=== PATIENT | female | born 1945 | race Caucasian/White ===

== ENCOUNTER 2017-05-28 16:58 | Emergency (ER) | payer MEDICARE, OTHER ==
[2017-05-28 17:13] VITALS: RESP 18
--- NOTE | 2017-05-28 17:18 | ED ---
General Adult HPI - General Chief complaint: Shortness of Breath Stated complaint: SOB Time Seen by Provider: 05/28/17 17:00 Source: patient, RN notes reviewed Mode of arrival: EMS Limitations: no limitations - History of Present Illness Initial comments: This is a 71-year-old female presents emergency Department stating she has had a heart attack in the past. Patient comes in today complaining of a four-day history of shortness of breath. Patient states the shortness of breath that seems to be getting slightly worse over the 4 days. Patient denies any chest pain or palpitations. Patient denies any calf pain or leg swelling. Patient denies any recent fever chills or cough. Patient denies any pain whatsoever. Patient states she just noticed that she's more short of breath especially when she is exerting herself. Patient denies any lightheadedness dizziness or near syncopal episode. Patient denies abdominal pain patient denies nausea vomiting or diarrhea. - Related Data Home Medications Medication Instructions Recorded Confirmed ALPRAZolam [Xanax] 0.25 mg PO TID PRN 10/20/13 05/28/17 Aspirin 81 mg PO DAILY 10/20/13 05/28/17 Insulin Aspart [NovoLOG Flexpen] 14 unit SQ TID 10/20/13 05/28/17 Insulin Glargine,Hum.rec.anlog 40 unit SQ HS 10/20/13 05/28/17 [Lantus Solostar] Metoprolol Tartrate [Metoprolol 50 mg PO BID 10/20/13 05/28/17 Tartrate] Multivitamin/Iron/Folic Acid 1 tab PO DAILY 10/20/13 05/28/17 [Centrum Complete Multivit Tab] Pramipexole [Mirapex] 0.125 mg PO HS 10/20/13 05/28/17 Pravastatin Sodium [Pravachol] 80 mg PO HS 10/20/13 05/28/17 Sertraline HCl [Zoloft] 100 mg PO DAILY 10/20/13 05/28/17 Spironolactone [Spironolactone] 25 mg PO DAILY 10/20/13 05/28/17 Amitriptyline HCl [Elavil] 50 mg PO HS 05/28/17 05/28/17 Furosemide [Lasix] 40 mg PO DAILY 05/28/17 05/28/17 Lisinopril 40 mg PO DAILY 05/28/17 05/28/17 Omeprazole [PriLOSEC] 20 mg PO AC-BID 05/28/17 05/28/17 Triamterene-Hctz 37.5-25Mg 1 cap PO DAILY 05/28/17 05/28/17 [Dyazide 37.5-25 Capsule] amLODIPine [Norvasc] 10 mg PO DAILY 05/28/17 05/28/17 cloNIDine HCL [Catapres] 0.1 mg PO HS 05/28/17 05/28/17 metFORMIN HCL 1,000 mg PO BID 05/28/17 05/28/17 Allergies Allergy/AdvReac Type Severity Reaction Status Date / Time No Known Allergies Allergy Verified 05/28/17 17:32 Review of Systems ROS Statement: Those systems with pertinent positive or pertinent negative responses have been documented in the HPI. ROS Other: All systems not noted in ROS Statement are negative. Past Medical History Past Medical History: Coronary Artery Disease (CAD), Heart Failure, Diabetes Mellitus, Eye Disorder, GERD/Reflux, Hyperlipidemia, Hypertension, Myocardial Infarction (DC), Osteoarthritis (OA) Additional Past Medical History / Comment(s): L cataract, hx of kidney stones Last Myocardial Infarction Date:: 05/2012 History of Any Multi-Drug Resistant Organisms: None Reported Past Surgical History: Heart Catheterization, Hysterectomy Additional Past Surgical History / Comment(s): Colonoscopy Past Anesthesia/Blood Transfusion Reactions: No Reported Reaction Past Psychological History: Anxiety, Depression Smoking Status: Former smoker Past Alcohol Use History: None Reported Past Drug Use History: Unable to Obtain - Past Family History Brother(s) Family Medical History: Cancer, Diabetes Mellitus Mother Family Medical History: Cancer Additional Family Medical History / Comment(s): Leukemia General Exam - General Exam Comments Initial Comments: GENERAL: Patient is well-developed and well-nourished. Patient is nontoxic and well- hydrated and is in mild distress. ENT: Neck is soft and supple. No significant lymphadenopathy is noted. Oropharynx is clear. Moist mucous membranes. Neck has full range of motion without eliciting any pain. EYES: The sclera were anicteric and conjunctiva were pink and moist. Extraocular movements were intact and pupils were equal round and reactive to light. Eyelids were unremarkable. PULMONARY: Unlabored respirations. Good breath sounds bilaterally. No audible rales rhonchi or wheezing was noted. CARDIOVASCULAR: There is a regular rate and rhythm without any murmurs gallops or rubs. ABDOMEN: Soft and nontender with normal bowel sounds. No palpable organomegaly was noted. There is no palpable pulsatile mass. SKIN: Skin is clear with no lesions or rashes and otherwise unremarkable. NEUROLOGIC: Patient is alert and oriented x3. Cranial nerves II through XII are grossly intact. Motor and sensory are also intact. Normal speech, volume and content. Symmetrical smile. MUSCULOSKELETAL: Normal extremities with adequate strength and full range of motion. No lower extremity swelling or edema. No calf tenderness. LYMPHATICS: No significant lymphadenopathy is noted PSYCHIATRIC: Normal psychiatric evaluation. Normal interpersonal interactions appears functionally intact in deals appropriately with others. No signs of depression. No signs of anxiety. Limitations: no limitations Course Vital Signs 05/28/17 05/28/17 17:05 19:25 Temperature 97.6 F Pulse Rate 93 93 Respiratory 18 18 Rate Blood Pressure 151/66 174/72 O2 Sat by Pulse 97 98 Oximetry Medical Decision Making - Medical Decision Making EKG shows normal sinus rhythm at 87 bpm ND interval 290 QRS is 90 QT interval 358 QTC is 4:30. Patient's EKG shows no ST segment elevation however there is some slight ST segment depression in leads V5 and V6. Chest x-ray showed no acute abnormality. Computed tomography scan showed no acute abnormality. Patient and later on the emergency department was in no respiratory distress and was oxygenating 98% after she was done. I went back in to give her all of her results she was lying in bed chewing gum breathing through her nose and without oxygen was at 97-98% pulse ox. Patient felt comfortable going home as did the family. - Lab Data Result diagrams: 05/28/17 18:02 05/28/17 18:02 Lab Results 05/28/17 05/28/17 05/28/17 Range/Units 18:02 18: 18:02 WBC 8.6 (3.8-10.6) k/uL RBC 4.51 (3.80-5.40) m/uL Hgb 12.9 (11.4-16.0) gm/dL Hct 40.7 (34.0-46.0) % MCV 90.3 (80.0-100.0) fL MCH 28.7 (25.0-35.0) pg MCHC 31.8 (31.0-37.0) g/dL RDW 13.3 (11.5-15.5) % Plt Count 296 (150-450) k/uL Neutrophils % 60 % Lymphocytes % 31 % Monocytes % 6 % Eosinophils % 2 % Basophils % 0 % Neutrophils # 5.2 (1.3-7.7) k/uL Lymphocytes # 2.7 (1.0-4.8) k/uL Monocytes # 0.5 (0-1.0) k/uL Eosinophils # 0.1 (0-0.7) k/uL Basophils # 0.0 (0-0.2) k/uL PT (9.0-12.0) sec INR (<1.2) APTT (22.0-30.0) sec D-Dimer (<0.60) mg/L FEU Sodium 141 (137-145) mmol/L Potassium 4.3 (3.5-5.1) mmol/L Chloride 102 (98-107) mmol/L Carbon Dioxide 25 (22-30) mmol/L Anion Gap 14 mmol/L BUN 26 H (7-17) mg/dL Creatinine 0.76 (0.52-1.04) mg/dL Est GFR (MDRD) Af Amer >60 (>60 ml/min/1.73 sqM) Est GFR (MDRD) Non-Af >60 (>60 ml/min/1.73 sqM) Glucose 201 H (74-99) mg/dL Calcium 9.3 (8.4-10.2) mg/dL Magnesium 2.0 (1.6-2.3) mg/dL Total Bilirubin 0.4 (0.2-1.3) mg/dL AST 21 (14-36) U/L ALT 14 (9-52) U/L Alkaline Phosphatase 94 (38-126) U/L Total Creatine Kinase 28 L (30-135) U/L CK-MB (CK-2) 0.2 (0.0-2.4) ng/mL CK-MB (CK-2) Rel Index 0.7 Troponin I <0.012 (0.000-0.034) ng/mL NT-Pro-B Natriuret Pep pg/mL Total Protein 6.8 (6.3-8.2) g/dL Albumin 4.1 (3.5-5.0) g/dL 05/28/17 05/28/17 Range/Units 18:02 18:02 WBC (3.8-10.6) k/uL RBC (3.80-5.40) m/uL Hgb (11.4-16.0) gm/dL Hct (34.0-46.0) % MCV (80.0-100.0) fL MCH (25.0-35.0) pg MCHC (31.0-37.0) g/dL RDW (11.5-15.5) % Plt Count (150-450) k/uL Neutrophils % % Lymphocytes % % Monocytes % % Eosinophils % % Basophils % % Neutrophils # (1.3-7.7) k/uL Lymphocytes # (1.0-4.8) k/uL Monocytes # (0-1.0) k/uL Eosinophils # (0-0.7) k/uL Basophils # (0-0.2) k/uL PT 9.8 (9.0-12.0) sec INR 1.0 (<1.2) APTT 24.5 (22.0-30.0) sec D-Dimer 0.68 H (<0.60) mg/L FEU Sodium (137-145) mmol/L Potassium (3.5-5.1) mmol/L Chloride (98-107) mmol/L Carbon Dioxide (22-30) mmol/L Anion Gap mmol/L BUN (7-17) mg/dL Creatinine (0.52-1.04) mg/dL Est GFR (MDRD) Af Amer (>60 ml/min/1.73 sqM) Est GFR (MDRD) Non-Af (>60 ml/min/1.73 sqM) Glucose (74-99) mg/dL Calcium (8.4-10.2) mg/dL Magnesium (1.6-2.3) mg/dL Total Bilirubin (0.2-1.3) mg/dL AST (14-36) U/L ALT (9-52) U/L Alkaline Phosphatase (38-126) U/L Total Creatine Kinase (30-135) U/L CK-MB (CK-2) (0.0-2.4) ng/mL CK-MB (CK-2) Rel Index Troponin I (0.000-0.034) ng/mL NT-Pro-B Natriuret Pep 53 pg/mL Total Protein (6.3-8.2) g/dL Albumin (3.5-5.0) g/dL Disposition Clinical Impression: Dyspnea Disposition: HOME SELF-CARE Condition: Good Instructions: Dyspnea (ED) Referrals: Jorge Edmonds Jr, [Primary Care Provider] - 1-2 days Time of Disposition: 20:08
[2017-05-28 18:14] LABS: Basophils % (A) 0 %; Eosinophils # (A) 0.1 k/uL (0-0.7); Eosinophils % (A) 2 %; HCT 40.7 % (34.0-46.0); HGB 12.9 gm/dL (11.4-16.0); Lymphocytes # (A) 2.7 k/uL (1.0-4.8); Lymphocytes % (A) 31 %; MCH 28.7 pg (25.0-35.0); MCHC 31.8 g/dL (31.0-37.0); MCV 90.3 fL (80.0-100.0); Mean Platelet Volume 6.9; Monocytes # (A) 0.5 k/uL (0-1.0); Monocytes % (A) 6 %; Neutrophils # (A) 5.2 k/uL (1.3-7.7); Neutrophils % (A) 60 %; Platelet Count 296 k/uL (150-450); RBC 4.51 m/uL (3.80-5.40); RDW 13.3 % (11.5-15.5); WBC 8.6 k/uL (3.8-10.6)
[2017-05-28 18:24] LABS: ALT 14 U/L (9-52); AST 21 U/L (14-36); Albumin 4.1 g/dL (3.5-5.0); Alkaline Phosphatase 94 U/L (38-126); Anion Gap 14 mmol/L; Blood Urea Nitrogen 26 mg/dL (7-17); Calcium 9.3 mg/dL (8.4-10.2); Carbon Dioxide 25 mmol/L (22-30); Chloride 102 mmol/L (98-107); Glucose 201 mg/dL (74-99); Potassium 4.3 mmol/L (3.5-5.1); Sodium 141 mmol/L (137-145); Total Bilirubin 0.4 mg/dL (0.2-1.3); Total Protein 6.8 g/dL (6.3-8.2)
[2017-05-28 18:25] LABS: D-Dimer 0.68 mg/L FEU (<0.60)
--- NOTE | 2017-05-28 18:26 | XR ---
EXAMINATION TYPE: XR chest 2V DATE OF EXAM: 05/28/2017 COMPARISON: 03/06/2014 HISTORY: Short of breath TECHNIQUE: Frontal and lateral views of the chest are obtained. FINDINGS: Heart is normal. Lungs are clear of infiltrate. Thoracic aorta is atheromatous. There is n o pleural effusion. Bony thorax is intact. Mediastinum is normal. IMPRESSION: No active cardiopulmonary disease. No change. Normal heart.
[2017-05-28 18:29] LABS: Partial Thromboplastin Time 24.5 sec (22.0-30.0); Prothrombin Time 9.8 sec (9.0-12.0)
[2017-05-28 18:30] LABS: Creatine Kinase 28 U/L (30-135)
[2017-05-28 18:44] LABS: Creatine Kinase MB 0.2 ng/mL (0.0-2.4); Troponin I <0.012 ng/mL (0.000-0.034)
[2017-05-28] MEDS ORDERED: RX INFO: IV CONTRAST WAS GIVEN 1 EACH MISC MISCELLANE PRN (18:44)
--- NOTE | 2017-05-28 19:14 | CT ---
EXAMINATION TYPE: CT chest angio for PE DATE OF EXAM: 05/28/2017 COMPARISON: 11/01/2012 HISTORY: Increasing SOB. CT DLP: 631 mGycm Automated exposure control for dose reduction was used. CONTRAST: CT Chest for pulmonary embolism performed with without and with IV Contrast, patient injected with 73 mL of Omnipaque 350. FINDINGS: There are 3-D post processed images. The lungs are clear of consolidation. There is no evidence of a pulmonary mass. There is no pleural effusion. There is no pericardial effusion. Ascending aorta measu res 3.4 cm. There is no sign of dissection. I see no filling defects in the pulmonary arteries. There are a few bilateral bronchial lymph nodes measure up to 1 cm. There is no mediastinal adenopathy. IMPRESSION: No evidence of pulmonary embolism. There is clearing of the extensive pulmonary edema compared to old exam. There is clearing of right pleural effusion. Minimal bronchial nonspecific adenopathy. Atherom atous aorta.
[2017-05-28] MEDS ORDERED: cloNIDine HCL 0.1 MG TAB PO STA (20:33)
[2017-05-28] MEDS ORDERED: METOPROLOL TARTRATE 50 MG TAB PO STA (20:35)
[2017-05-28 21:02] VITALS: BP 182/77; PULSE 88; TEMP 97.8
== END 2017-05-28 21:05 | disposition home or self-care (01) ==
LOC: EC 16:58
DX: R06.00 Dyspnea, unspecified (principal); I25.10 Atherosclerotic heart disease of native coronary artery without angina pectoris; I11.0 Hypertensive heart disease with heart failure; I50.9 Heart failure, unspecified; E11.9 Type 2 diabetes mellitus without complications; E78.5 Hyperlipidemia, unspecified; I25.2 Old myocardial infarction; M19.90 Unspecified osteoarthritis, unspecified site; F32.9 Major depressive disorder, single episode, unspecified; F41.9 Anxiety disorder, unspecified; Z87.891 Personal history of nicotine dependence; Z79.82 Long term (current) use of aspirin; Z79.4 Long term (current) use of insulin; Z79.84 Long term (current) use of oral hypoglycemic drugs; Z79.899 Other long term (current) drug therapy
CPT/HCPCS: 36415; 93005; 85379; 83880; 80053; 82550; 82553; 83735; 84484; 85025; 85610; 85730; 71046; 71275; 99285; Q9967

== ENCOUNTER 2017-06-08 14:25 | Inpatient (IN) | payer MEDICARE, OTHER ==
[2017-06-08] MEDS ORDERED: SODIUM CHLORIDE 0.9% 1,000 ML IV STA (14:45)
[2017-06-08] MEDS ORDERED: ATROPINE SULFATE 0.1 MG/ML 10ML SYRINGE IV STA ×3 (14:48→15:07)
[2017-06-08] MEDS ORDERED: SODIUM CHLORIDE 0.9% 500 ML IV ONE (14:48)
--- NOTE | 2017-06-08 14:55 | ED ---
Dizziness HPI - General Chief Complaint: Dizziness Stated Complaint: bradycardia Time Seen by Provider: 06/08/17 14:30 Source: patient, EMS Mode of arrival: EMS Limitations: no limitations - History of Present Illness Initial Comments: 71 years old lady with history of heart disease history of angina diabetes hypertension was seen by hand wrapper operator today they felt that they noticed that she had extremely slow or slow heart rate when she was sent to ER she has been quite lightheaded lately and as a matter of fact cardiology had changed some of her medications on beta blockers were discontinued today. She complains about extreme lightheadedness and weakness no chest pain as such no headaches no neck stiffness she has help she has shortness of breath today she sustained is a chronic. No symptoms of TIA or CVA at this point. She has a very low blood pressure Dr. Carmen's office blood pressure was 70 systolic, when she arrived to the ER blood pressure was 150 systolic heart rate was still very low and she had a multiple PVCs as well - Related Data Home Medications Medication Instructions Recorded Confirmed ALPRAZolam [Xanax] 0.25 mg PO TID PRN 10/20/13 06/08/17 Aspirin 81 mg PO DAILY 10/20/13 06/08/17 Insulin Aspart [NovoLOG Flexpen] 14 unit SQ AC-TID 10/20/13 06/08/17 Insulin Glargine,Hum.rec.anlog 40 unit SQ HS 10/20/13 06/08/17 [Lantus Solostar] Multivitamin/Iron/Folic Acid 1 tab PO DAILY 10/20/13 06/08/17 [Centrum Complete Multivit Tab] Pramipexole [Mirapex] 0.125 mg PO HS 10/20/13 06/08/17 Omeprazole [PriLOSEC] 20 mg PO AC-BID 05/28/17 06/08/17 Triamterene-Hctz 37.5-25Mg 1 cap PO DAILY 05/28/17 06/08/17 [Dyazide 37.5-25 Capsule] metFORMIN HCL 1,000 mg PO BID 05/28/17 06/08/17 Lisinopril 20 mg PO DAILY 06/08/17 06/08/17 Metoprolol Tartrate [Lopressor] 25 mg PO BID 06/08/17 06/08/17 Naproxen Sodium [Aleve] 220 mg PO BID 06/08/17 06/08/17 Pravastatin Sodium [Pravachol] 80 mg PO DAILY 06/08/17 06/08/17 Allergies Allergy/AdvReac Type Severity Reaction Status Date / Time No Known Allergies Allergy Verified 06/08/17 15:11 Review of Systems ROS Statement: Those systems with pertinent positive or pertinent negative responses have been documented in the HPI. ROS Other: All systems not noted in ROS Statement are negative. Past Medical History Past Medical History: Coronary Artery Disease (CAD), Heart Failure, Diabetes Mellitus, Eye Disorder, GERD/Reflux, Hyperlipidemia, Hypertension, Myocardial Infarction (AR), Osteoarthritis (OA) Additional Past Medical History / Comment(s): L cataract, hx of kidney stones Last Myocardial Infarction Date:: 05/2012 History of Any Multi-Drug Resistant Organisms: None Reported Past Surgical History: Heart Catheterization, Hysterectomy Additional Past Surgical History / Comment(s): Colonoscopy Past Anesthesia/Blood Transfusion Reactions: No Reported Reaction Past Psychological History: Anxiety, Depression Smoking Status: Former smoker Past Alcohol Use History: None Reported Past Drug Use History: Unable to Obtain - Past Family History Brother(s) Family Medical History: Cancer, Diabetes Mellitus Mother Family Medical History: Cancer Additional Family Medical History / Comment(s): Leukemia General Exam - General Exam Comments Initial Comments: General: The patient is awake and alert, in no distress, and does not appear acutely ill. She looks tired and pale Skin: Skin is warm and dry and no rashes or lesions are noted. Eye: Pupils are equal, round and reactive to light, extra-ocular movements are intact; there is normal conjunctiva bilaterally. Ears, nose, mouth and throat: There are moist mucous membranes and no oral lesions. Neck: The neck is supple, there is no tenderness or JVD. Cardiovascular: There is a regular rate and rhythm. No murmur, rub or gallop is appreciated. Respiratory: To auscultation bilateral, no wheezing no rhonchi no distress respiratory urias noticed Gastrointestinal: Soft, non-distended, non-tender abdomen without masses or organomegaly noted. There is no rebound or guarding present. Bowel sounds are unremarkable. Back: There is no tenderness to palpation in the midline. There is no obvious deformity. Musculoskeletal: Normal ROM, no tenderness, There is no pedal edema. There is no calf tenderness or swelling. No cords were appreciated. Neurological: CN II-XII intact, Cranial nerves III through XII are intact. There are no obvious motor or sensory deficits. Coordination appears grossly intact. Speech is normal. Psychiatric: Cooperative, appropriate mood & affect, normal judgment. Limitations: no limitations Course Vital Signs 06/08/17 06/08/17 14:30 15:16 Temperature 96.5 F L Pulse Rate 42 L 48 L Respiratory 16 20 Rate Blood Pressure 153/63 138/64 O2 Sat by Pulse 100 100 Oximetry EKG Findings - EKG Comments: EKG Findings:: EKG is marked sinus bradycardia with occasional premature ventricular complexes ventricular rate is 54 MI interval is 198 QRS duration is 116 QT/QTc is 420/398. Previous EKG reveals some T-wave inversion in lead [address] elevation noticed noticed some PVCs, this was compared with the old EKG from 05/28/2017, there is normal sinus rhythm this is a marked bradycardia compared to an old EKG Medical Decision Making - Lab Data Result diagrams: 06/08/17 14:50 06/08/17 15:15 Lab Results 06/08/17 06/08/17 06/08/17 Range/Units 14:50 14:50 15:15 WBC 12.6 H (3.8-10.6) k/uL RBC 4.91 (3.80-5.40) m/uL Hgb 14.0 (11.4-16.0) gm/dL Hct 43.4 (34.0-46.0) % MCV 88.3 (80.0-100.0) fL MCH 28.4 (25.0-35.0) pg MCHC 32.2 (31.0-37.0) g/dL RDW 13.2 (11.5-15.5) % Plt Count 337 (150-450) k/uL Neutrophils % 66 % Lymphocytes % 27 % Monocytes % 4 % Eosinophils % 1 % Basophils % 0 % Neutrophils # 8.4 H (1.3-7.7) k/uL Lymphocytes # 3.4 (1.0-4.8) k/uL Monocytes # 0.5 (0-1.0) k/uL Eosinophils # 0.1 (0-0.7) k/uL Basophils # 0.0 (0-0.2) k/uL Sodium 135 L (137-145) mmol/L Potassium 8.1 H* (3.5-5.1) mmol/L Chloride 104 (98-107) mmol/L Carbon Dioxide 18 L (22-30) mmol/L Anion Gap 13 mmol/L BUN 74 H (7-17) mg/dL Creatinine 1.91 H (0.52-1.04) mg/dL Est GFR (MDRD) Af Amer 31 (>60 ml/min/1.73 sqM) Est GFR (MDRD) Non-Af 26 (>60 ml/min/1.73 sqM) Glucose 135 H (74-99) mg/dL Calcium 9.3 (8.4-10.2) mg/dL Total Bilirubin 0.4 (0.2-1.3) mg/dL AST 19 (14-36) U/L ALT 23 (9-52) U/L Alkaline Phosphatase 68 (38-126) U/L Troponin I <0.012 (0.000-0.034) ng/mL Total Protein 7.3 (6.3-8.2) g/dL Albumin 4.4 (3.5-5.0) g/dL Critical Care Time Total Critical Care Time: 60 Critical Care Time: Sent over by a Dr. Canales considering her very low blood pressure she had a blood pressure systolic 70 physician's office and heart rate was in 40s on arrival heart rate was still 40s and blood pressure has gotten better she does have a history of heart vomit neuropathy she feels very weak she was started on him IV fluids we did the atropine 0.5 mg IV every 10 minutes with a great deal of benefit, we had stopped her beta blockers, EKG read significant bradycardia I was not a third-degree block and there was just a sinus bradycardia the labs are reviewed troponin is normal potassium is 8.1 it was repeated is 8.1 at that point she we gave her calcium gluconate 1 g IV and then 1950 and insulin IV albuterol inhaled and Kayexalate considering all these bradycardia hypotension and now a severe hypercalcemia she would need to be admitted she will go to monitored bed and with all these interventions hopefully will potassium be corrected with her about an hour Disposition Clinical Impression: Bradycardia, Hypotension, Generalized weakness, Autonomic neuropathy, Hyperkalemia Disposition: ADMITTED IP TO THIS [facility] Condition: Good Referrals: Jorge Edmonds Jr, DO [Primary Care Provider] - 1-2 days
[2017-06-08 14:59] LABS: Basophils % (A) 0 %; Eosinophils # (A) 0.1 k/uL (0-0.7); Eosinophils % (A) 1 %; HCT 43.4 % (34.0-46.0); Lymphocytes # (A) 3.4 k/uL (1.0-4.8); Lymphocytes % (A) 27 %; MCH 28.4 pg (25.0-35.0); MCHC 32.2 g/dL (31.0-37.0); MCV 88.3 fL (80.0-100.0); Mean Platelet Volume 7.1; Monocytes # (A) 0.5 k/uL (0-1.0); Monocytes % (A) 4 %; Neutrophils # (A) 8.4 k/uL (1.3-7.7); Neutrophils % (A) 66 %; Platelet Count 337 k/uL (150-450); RBC 4.91 m/uL (3.80-5.40); RDW 13.2 % (11.5-15.5); WBC 12.6 k/uL (3.8-10.6)
--- NOTE | 2017-06-08 15:33 | XR ---
EXAMINATION TYPE: XR chest 1V portable DATE OF EXAM: 06/08/2017 COMPARISON: Prior chest x-ray 05/28/2017 HISTORY: Bradycardia TECHNIQUE: Single frontal view of the chest is obtained. FINDINGS: There is no focal air space opacity, pleural effusion, or pneumothorax seen. The cardiac silhouette size is stable accounting for differences in technique. Patient is rotated, there are ov erlying cardiac leads. The osseous structures are intact. IMPRESSION: No acute process. Rotated exam, follow-up as indicated.
[2017-06-08 15:37] LABS: Albumin 4.4 g/dL (3.5-5.0); Calcium 9.3 mg/dL (8.4-10.2); Total Bilirubin 0.4 mg/dL (0.2-1.3); Total Protein 7.3 g/dL (6.3-8.2)
[2017-06-08 15:39] LABS: Potassium 8.1 mmol/L (3.5-5.1)
[2017-06-08] MEDS ORDERED: CALCIUM GLUCONATE 1,000 MG in SODIUM CHLORIDE 0.9% 100 ML IVPB ONE (15:41)
[2017-06-08] MEDS ORDERED: DEXTROSE 50%-WATER 50 ML SYRINGE IVP STA ×2 (15:42→18:45)
[2017-06-08] MEDS ORDERED: INSULIN REGULAR 100 UNIT/ML VIAL IV ONE ×2 (15:42→18:45)
[2017-06-08] MEDS ORDERED: ALBUTEROL NEBULIZED (CONC) 5 MG, SODIUM CHLORIDE 0.9% NEBULIZ 3 ML INHALATION STA ×2 (15:43)
[2017-06-08] MEDS ORDERED: SODIUM POLYSTYRENE SULFONATE 15 GM/60 ML BOTTLE PO STA ×2 (15:43→18:45)
[2017-06-08] MEDS ORDERED: NITROGLYCERIN SL TABS 0.4 MG TAB SUBLINGUAL PRN (16:01)
[2017-06-08] MEDS ORDERED: ALBUTEROL NEB (CONC) 2.5 MG/0.5 ML INHALATION STA (16:04)
[2017-06-08] MEDS ORDERED: ALBUTEROL NEBULIZED 2.5 MG/3 ML INHALATION STA (16:05)
[2017-06-08] MEDS ORDERED: ALBUTEROL NEBULIZED 2.5 MG/3 ML INHALATION PRN (18:48)
[2017-06-08 20:45] LABS: Appearance,Urine Clear (Clear); Bilirubin,Urine Negative (Negative); Blood,Urine Negative (Negative); Color,Urine Light Yellow; Glucose,Urine (UA) Trace (Negative); Ketones,Urine Negative (Negative); Leukocyte Esterase,Urine Negative (Negative); Protein,Urine Negative (Negative); Specific Gravity,Urine 1.008 (1.001-1.035); Urobilinogen,Urine <2.0 mg/dL (<2.0)
[2017-06-08] MEDS ORDERED: metFORMIN 500 MG TAB PO SCH (21:00)
[2017-06-08] MEDS: PANTOPRAZOLE 40 MG TABLET PO SCH (22:02)
[2017-06-08] MEDS: ALPRAZolam 0.25 MG TAB PO PRN (22:02)
[2017-06-08] MEDS: PRAMIPEXOLE 0.125 MG TAB PO SCH (22:02)
[2017-06-08] MEDS: INSULIN DETEMIR 100 UNIT/ML 10 ML VIAL SQ SCH (22:03)
[2017-06-08] MEDS: INSULIN ASPART 100 UNIT/ML 1 ML 10 ML VIAL SQ SCH (22:04)
[2017-06-08 22:17] LABS: Creatine Kinase 26 U/L (30-135)
[2017-06-08 22:17] LABS: Glucose,Whole Blood 214 mg/dL (75-99)
[2017-06-08 22:27] LABS: Creatine Kinase MB 0.5 ng/mL (0.0-2.4); Troponin I <0.012 ng/mL (0.000-0.034)
[2017-06-09 03:28] LABS: Cholesterol 145 mg/dL (<200); HDL Cholesterol 44 mg/dL (40-60); LDL Cholesterol,Calculated 61 mg/dL (0-99); Triglycerides 198 mg/dL (<150)
[2017-06-09 04:06] LABS: Creatine Kinase 29 U/L (30-135)
[2017-06-09 04:18] LABS: Creatine Kinase MB 0.6 ng/mL (0.0-2.4); Troponin I <0.012 ng/mL (0.000-0.034)
[2017-06-09 06:08] LABS: Glucose,Whole Blood 75 mg/dL (75-99)
[2017-06-09 06:26] LABS: Albumin 3.8 g/dL (3.5-5.0); Calcium 9.2 mg/dL (8.4-10.2); Potassium 5.6 mmol/L (3.5-5.1); Total Bilirubin 0.3 mg/dL (0.2-1.3); Total Protein 6.4 g/dL (6.3-8.2)
[2017-06-09] MEDS: INSULIN ASPART 100 UNIT/ML 1 ML 10 ML VIAL SQ SCH ×4 (07:03→21:37)
[2017-06-09] MEDS: PANTOPRAZOLE 40 MG TABLET PO SCH ×2 (07:05→18:59)
[2017-06-09 08:30] VITALS: RESP 16
[2017-06-09] MEDS ORDERED: TRIAMTERENE-HCTZ 37.5-25MG 1 EACH CAP PO SCH (09:00)
[2017-06-09] MEDS ORDERED: PRAVASTATIN SODIUM 80 MG TAB PO SCH (09:00)
[2017-06-09] MEDS ORDERED: SODIUM POLYSTYRENE SULFONATE 15 GM/60 ML BOTTLE PO STA (09:00)
[2017-06-09] MEDS ORDERED: SODIUM BICARB 8.4% 50 ML SYR (1 MEQ/ML) IV ONE ×2 (09:24→17:30)
[2017-06-09] MEDS ORDERED: INSULIN REGULAR 100 UNIT/ML VIAL IV ONE ×2 (09:25→17:08)
[2017-06-09] MEDS ORDERED: DEXTROSE 50%-WATER 50 ML SYRINGE IVP STA ×2 (09:25→17:09)
[2017-06-09] MEDS: amLODIPine 5 MG TAB PO SCH (10:12)
[2017-06-09] MEDS: ASPIRIN 325 MG TAB PO SCH (10:12)
--- NOTE | 2017-06-09 10:12 | P.NPCON ---
History of Present Illness - Reason for Consult acute renal failure, hyperkalemia - History of Present Illness Reason for consultation: Acute kidney injury and hyperkalemia History of present illness: Patient is a 71-year-old female seen in consultation for acute kidney injury and hyperkalemia. Her creatinine was 1.9 on admission and a potassium was 8.1. 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 She also had an episode of emesis. Subsequently EMS was called and she was sent to the hospital. The potassium was medically treated with IV insulin, sodium bicarb as well as Kayexalate. Potassium level this morning was 5.6. She was also noted to have urinary retention for which a Mccollum catheter was placed. She is nonoliguric. Her blood pressure is in the systolic 160s. Her heart rate is actually in the range of 100-122 this morning. Currently resting in bed. Oral intake is fair. No diarrhea. Denies any history of kidney disease. No history of hematuria or dysuria. Denies any family history of renal disease. She does admit to taking Aleve 2 tablets daily for the last 1 year. She was also on Dyazide as well as an DAYLIN inhibitor at home. Vital signs are stable. General: The patient appeared well nourished and normally developed. HEENT: Head exam is unremarkable. Neck is without jugular venous distension. LUNGS: Lungs are clear to auscultation and percussion. Breath sounds decreased. HEART: Rate and Rhythm are regular. First and second heart sounds normal. No murmurs, rubs or gallops. ABDOMEN: Abdominal exam reveals normal bowel sounds. Non-tender and non- distended. No evidence of peritonitis. EXTREMITITES: No clubbing, cyanosis, or edema. Past Medical History Past Medical History: Coronary Artery Disease (CAD), Heart Failure, Diabetes Mellitus, Eye Disorder, GERD/Reflux, Hyperlipidemia, Hypertension, Myocardial Infarction ([place]), Osteoarthritis (OA) Additional Past Medical History / Comment(s): L cataract, hx of kidney stones Last Myocardial Infarction Date:: 05/2012 History of Any Multi-Drug Resistant Organisms: None Reported Past Surgical History: Heart Catheterization, Hysterectomy Additional Past Surgical History / Comment(s): Colonoscopy Past Anesthesia/Blood Transfusion Reactions: No Reported Reaction Past Psychological History: Anxiety, Depression Smoking Status: Former smoker Past Alcohol Use History: None Reported Past Drug Use History: None Reported - Past Family History Brother(s) Family Medical History: Cancer, Diabetes Mellitus Mother Family Medical History: Cancer Additional Family Medical History / Comment(s): Leukemia Medications and Allergies Home Medications Medication Instructions Recorded Confirmed Type ALPRAZolam [Xanax] 0.25 mg PO TID PRN 10/20/13 06/08/17 History Aspirin 81 mg PO DAILY 10/20/13 06/08/17 History Insulin Aspart [NovoLOG Flexpen] 14 unit SQ AC-TID 10/20/13 06/08/17 History Insulin Glargine,Hum.rec.anlog 40 unit SQ HS 10/20/13 06/08/17 History [Lantus Solostar] Multivitamin/Iron/Folic Acid 1 tab PO DAILY 10/20/13 06/08/17 History [Centrum Complete Multivit Tab] Pramipexole [Mirapex] 0.125 mg PO HS 10/20/13 06/08/17 History Omeprazole [PriLOSEC] 20 mg PO AC-BID 05/28/17 06/08/17 History Triamterene-Hctz 37.5-25Mg 1 cap PO DAILY 05/28/17 06/08/17 History [Dyazide 37.5-25 Capsule] metFORMIN HCL 1,000 mg PO BID 05/28/17 06/08/17 History Lisinopril 20 mg PO DAILY 06/08/17 06/08/17 History Metoprolol Tartrate [Lopressor] 25 mg PO BID 06/08/17 06/08/17 History Naproxen Sodium [Aleve] 220 mg PO BID 06/08/17 06/08/17 History Pravastatin Sodium [Pravachol] 80 mg PO DAILY 06/08/17 06/08/17 History Allergies Allergy/AdvReac Type Severity Reaction Status Date / Time No Known Allergies Allergy Verified 06/08/17 15:11 Physical Exam Vitals: Vital Signs Temp Pulse Pulse Pulse Resp BP BP 06/09/17 08:15 101 H 16 161/65 06/09/17 08:11 106 H 168/68 06/09/17 08:08 112 H 170/70 06/09/17 08:05 122 H 18 165/68 06/09/17 03:14 97.9 F 79 18 06/09/17 00:00 98.0 F 92 18 06/08/17 20:34 98.0 F 100 20 153/70 06/08/17 20:15 96.8 F L 104 H 17 169/71 06/08/17 19:30 97.8 F 105 H 18 151/68 06/08/17 19:21 100 06/08/17 19:08 100 06/08/17 18:30 87 20 175/78 06/08/17 18:02 97.0 F L 92 17 06/08/17 17:07 96.9 F L 51 L 17 172/70 06/08/17 16:15 57 L 18 137/53 06/08/17 15:16 48 L 20 138/64 06/08/17 14:30 96.5 F L 42 L 16 153/63 BP Pulse Ox 06/09/17 08:15 98 06/09/17 08:11 98 06/09/17 08:08 98 06/09/17 08:05 98 06/09/17 03:14 122/43 100 06/09/17 00:00 143/78 99 06/08/17 20:34 98 06/08/17 20:15 99 06/08/17 19:30 99 06/08/17 19:21 06/08/17 19:08 06/08/17 18:30 98 06/08/17 18:02 169/69 99 06/08/17 17:07 100 06/08/17 16:15 98 06/08/17 15:16 100 06/08/17 14:30 100 Intake and Output 06/08/17 06/09/17 06/09/17 22:59 06:59 14:59 Output Total 800 600 Balance -800 -600 Output: Urine 800 600 Uretheral (Mccollum) 800 Other: Voiding Method Indwelling Catheter # Voids 0 Weight 78.018 kg 78.7 kg Results - Lab Results Most recent lab results Calcium 9.2 mg/dL (8.4-10.2) 06/09/17 05:18 Magnesium 2.0 mg/dL (1.6-2.3) 06/09/17 05:18 06/08/17 14:50 06/09/17 05:18 Assessment and Plan Plan: Assessment: #1. Nonoliguric acute kidney injury mostly prerenal secondary to hypotension and hemodynamic instability. Also component of urinary retention. Improving. Creatinine was 1.9 on admission and is down to 1.4 today. #2. Urinary retention status post Mccollum catheter placement. #3. Severe hyperkalemia secondary to acute kidney injury, metabolic acidosis, urinary retention and further worsened with the use of NSAIDs, DAYLIN inhibitor and triamterene. Improved with medical management. #4. Metabolic acidosis secondary to acute kidney injury. Improved. #5. Bradycardia likely related to hyperkalemia. Resolved. #6. Hypotension. Resolved with IV fluids. Now hypertensive. Plan: Continue normal saline at 75 mL an hour. Maintain oral sodium bicarbonate 650 mg twice daily. I will repeat 10 units of IV insulin with amp of D50 now. Repeat potassium level at 4 PM today. Avoid nephrotoxic agents and hypotensive episodes. Maintain Mccollum catheter. Encourage oral intake. Check renal ultrasound. I will add hydralazine 25 mg 3 times daily. Follow-up echocardiogram results. Repeat electrolytes in the morning. Thank you for the consultation. I will continue to follow the patient with you during her hospital stay.
[2017-06-09] MEDS: SODIUM BICARBONATE TAB 650 MG TAB PO SCH ×2 (10:13→19:50)
[2017-06-09] MEDS: hydrALAZINE HCL 25 MG TAB PO SCH ×3 (10:13→21:36)
[2017-06-09] MEDS: SODIUM CHLORIDE 0.9% 1,000 ML IV SCH ×2 (10:31→21:51)
--- NOTE | 2017-06-09 11:31 | ECHOF ---
Referral Reason:Evaluate EF MEASUREMENTS -------- HEIGHT: 165.1 cm WEIGHT: 78.5 kg BP: 161/65 RVIDd: 3.0 cm (< 3.3) IVSd: 1.3 cm (0.6 - 1.1) LVIDd: 3.1 cm (3.9 - 5.3) LVPWd: 1.6 cm (0.6 - 1.1) IVSs: 1.5 cm LVIDs: 1.7 cm LVPWs: 1.8 cm Ao Diam: 2.8 cm (2.0 - 3.7) AV Cusp: 1.9 cm (1.5 - 2.6) LA Diam: 2.8 cm (2.7 - 3.8) MV EXCURSION: 11.800 mm (> 18.000) MV EF SLOPE: 23 mm/s (70 - 150) EPSS: 0.6 cm MV E Michael: 0.43 m/s MV DecT: 201 ms MV A Michael: 0.84 m/s MV E/A Ratio: 0.51 FINDINGS -------- Resting tachycardia (HR>100bpm). This was a technically difficult study with suboptimal views. The cavity size is decreased. There is moderate concentric left ventricular hypertrophy. Overall left ventricular systolic function is normal with, an EF between 60 - 65 %.Mild Lvot Obstruction w ith a peak gradient of 17mmHg. Heart is hyperdynamic The right ventricle is normal in size and function. The left atrium is normal in size. The right atrium is normal in size. Aortic valve is trileaflet and is mildly thickened. The mitral valve leaflets are mildly thickened. There is trace mitral regurgitation. Trace tricuspid regurgitation present. The right ventricular systolic pressure, as measured by Dopp ler, is {RVSP}. Pulmonic valve appears structurally normal. The aortic root size is normal. The pericardium is normal. CONCLUSIONS -------- 1. Resting tachycardia (HR>100bpm). 2. This was a technically difficult study with suboptimal views. 3. The cavity size is decreased. 4. There is moderate concentric left ventricular hypertrophy. 5. Overall left ventricular systolic function is normal with, an EF between 60 - 65 %. 6. Mild Lvot Obstruction with a peak gradient of 17mmHg. 7. Heart is hyperdynamic 8. The right ventricle is normal in size and function. 9. The left atrium is normal in size. 10. The right atrium is normal in size. 11. Lumason used 12. Aortic valve is trileaflet and is mildly thickened. 13. The mitral valve leaflets are mildly thickened. 14. There is trace mitral regurgitation. 15. Trace tricuspid regurgitation present. 16. The right ventricular systolic pressure, as measured by Doppler, is {RVSP}. 17. Pulmonic valve appears structurally normal. 18. The aortic root size is normal. 19. The pericardium is normal. ZIPPER SETTER CHAINSTITCH: Lulu Soares RDCS
--- NOTE | 2017-06-09 11:59 | CONS ---
CONSULTATION This is a 71-year-old lady who was seen by Dr. Reyes apparently and sent from the office. She used to see Dr. Arlene Sosa in the office prior to that. She has a noncritical moderate CAD. She is known to have type 2 diabetes, hypertension, hypercholesterolemia, and she came to the office with weakness, fatigue and lack of energy, had a slow heart rate was sent to the emergency room. In the ER, she was hydrated. Her potassium was 8.1. They gave her a Kayexalate as well as some glucose and insulin and potassium is now 5.4. She is in the telemetry unit. Denies chest pain. Complains of a fatigue and weakness, but feels better. Her nausea persists, but she does not have any emesis this morning. She had some diarrhea before she came into the hospital. She has multiple comorbid conditions. At the time of my evaluation, she is resting comfortably, hemodynamically stable. Heart rate is in the low 100s. Hyperkalemia seems to have resolved. PAST MEDICAL HISTORY: 1. Noncritical CAD with about a 50% lesion in the RCA and diagonal branch. 2. Type 2 diabetes mellitus on insulin and metformin. 3. Hypertension. 4. Hypercholesterolemia. 5. History of some mild depression. MEDICATIONS: Medications at home include metformin, lisinopril, metoprolol tartrate, pravastatin, naproxen. She was also on Xanax, aspirin 81 mg daily, insulin and she was apparently on Dyazide and lisinopril combination. Pravastatin 80 mg daily. No known allergies. ALLERGIES: None. PHYSICAL EXAMINATION: Blood pressure is 145/80, pulse rate is about 106 per minute. HEENT: Unremarkable. Fundus was not examined by me. Neck is supple. No JVD. Heart exam reveals S1, S2. There is a short systolic murmur at the base of the heart. Lungs reveal bilateral scattered rhonchi, but overall air entry is good. Abdomen is soft. There is no tenderness. Lower extremities reveal diminished pulses. Central nervous system is normal. EKG that was performed today revealed a sinus mechanism, nonspecific ST abnormality, isolated PVCs. IMPRESSION: 1. Dehydration. 2. 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 3. Type 2 diabetes mellitus. 4. Hypertension. 5. Hyperlipidemia. 6. Noncritical coronary artery disease. RECOMMENDATIONS: I am recommending that we will continue to hydrate the patient, initiate her on metoprolol 25 mg b.i.d., discontinue metformin, try Norvasc hydrate her, decrease pravastatin to 40 mg daily. Check a BMP 6 p.m. and 6 a.m. and give additional Kayexalate 30 grams today. I discussed my thoughts in detail with the patient. Thank you very much for the consult. MMODL / IJN: [id number] /
[2017-06-09 12:06] LABS: Glucose,Whole Blood 81 mg/dL (75-99)
--- NOTE | 2017-06-09 12:45 | US ---
EXAMINATION TYPE: US kidneys/renal and bladder DATE OF EXAM: 06/09/2017 COMPARISON: US 2013, CT 2012 CLINICAL HISTORY: blanca. BLANCA EXAM MEASUREMENTS: Right Kidney: 9.8 x 4.9 x 4.7 cm Left Kidney: 9.5 x 5.2 x 4.3 cm Right Kidney: 0.6cm echogenic shadowing focus mid pole Left Kidney: 0.6cm echogenic shadowing focus superior pole Bladder: not fully distended, rai catheter, therefore there is suboptimal visualization. Bilateral Jets seen: no There is no evidence for hydronephrosis at this point in time. No masses are identified. The urinary bladder is anechoic. IMPRESSION: Bilateral 6 mm nonobstructing renal calculi. No evidence of hydronephrosis.
[2017-06-09 12:50] VITALS: BMI 28.8
[2017-06-09 16:53] LABS: Potassium 5.8 mmol/L (3.5-5.1)
[2017-06-09] MEDS ORDERED: SODIUM BICARB 8.4% 50 ML VIAL (1 MEQ/ML) IV ONE (17:03)
[2017-06-09 17:11] LABS: Glucose,Whole Blood 104 mg/dL (75-99)
[2017-06-09] MEDS ORDERED: ONDANSETRON 4 MG/2 ML VIAL IVP PRN (19:19)
--- NOTE | 2017-06-09 19:46 | P.HPIM ---
History of Present Illness H&P Date: 06/09/17 Chief Complaint: Weakness bradycardia dizzy This is a 71-year-old female with known history of heart disease diabetes and was being seen by the client relationship manager yesterday and they felt they noticed he had extreme slow heart rate peaked T waves and absent Ps consistent with hyperkalemia. The ER physician started patient on insulin and Kayexalate calcium gluconate Patient has improved her acute renal failure has improved significantly B ON is 50 greater than 1.3 her potassium is 5.8 at this time Patient had been taking [id number] Aleve that I was not made aware of this and the last visit in the office her lisinopril was decreased from from I believe 10-2.5 in the office patient had been taking Dyazide. Rodolfo , thiazide diuretic and NSAIDs were all stopped Patient has significantly improved Review of Systems Constitutional: Reports weakness Ears, nose, mouth and throat: Reports as per HPI Cardiovascular: Reports irregular heart beat, Reports syncope Respiratory: Reports cough Gastrointestinal: Reports as per HPI Menstruation: Reports postmenopausal Musculoskeletal: Reports as per HPI Integumentary: Reports as per HPI Neurological: Reports as per HPI Psychiatric: Reports as per HPI Endocrine: Reports high blood sugars Past Medical History Past Medical History: Coronary Artery Disease (CAD), Heart Failure, Diabetes Mellitus, Eye Disorder, GERD/Reflux, Hyperlipidemia, Hypertension, Myocardial Infarction ([place]), Osteoarthritis (OA) Additional Past Medical History / Comment(s): L cataract, hx of kidney stones Last Myocardial Infarction Date:: 05/2012 History of Any Multi-Drug Resistant Organisms: None Reported Past Surgical History: Heart Catheterization, Hysterectomy Additional Past Surgical History / Comment(s): Colonoscopy Past Anesthesia/Blood Transfusion Reactions: No Reported Reaction Past Psychological History: Anxiety, Depression Smoking Status: Former smoker Past Alcohol Use History: None Reported Past Drug Use History: None Reported - Past Family History Brother(s) Family Medical History: Cancer, Diabetes Mellitus Mother Family Medical History: Cancer Additional Family Medical History / Comment(s): Leukemia Medications and Allergies Home Medications Medication Instructions Recorded Confirmed Type ALPRAZolam [Xanax] 0.25 mg PO TID PRN 10/20/13 06/08/17 History Aspirin 81 mg PO DAILY 10/20/13 06/08/17 History Insulin Aspart [NovoLOG Flexpen] 14 unit SQ AC-TID 10/20/13 06/08/17 History Insulin Glargine,Hum.rec.anlog 40 unit SQ HS 10/20/13 06/08/17 History [Lantus Solostar] Multivitamin/Iron/Folic Acid 1 tab PO DAILY 10/20/13 06/08/17 History [Centrum Complete Multivit Tab] Pramipexole [Mirapex] 0.125 mg PO HS 10/20/13 06/08/17 History Omeprazole [PriLOSEC] 20 mg PO AC-BID 05/28/17 06/08/17 History Triamterene-Hctz 37.5-25Mg 1 cap PO DAILY 05/28/17 06/08/17 History [Dyazide 37.5-25 Capsule] metFORMIN HCL 1,000 mg PO BID 05/28/17 06/08/17 History Lisinopril 20 mg PO DAILY 06/08/17 06/08/17 History Metoprolol Tartrate [Lopressor] 25 mg PO BID 06/08/17 06/08/17 History Naproxen Sodium [Aleve] 220 mg PO BID 06/08/17 06/08/17 History Pravastatin Sodium [Pravachol] 80 mg PO DAILY 06/08/17 06/08/17 History Allergies Allergy/AdvReac Type Severity Reaction Status Date / Time No Known Allergies Allergy Verified 06/08/17 15:11 Physical Exam Osteopathic Statement: *. No significant issues noted on an osteopathic structural exam other than those noted in the History and Physical/Consult. Vitals: Vital Signs Temp Pulse Pulse Pulse Resp BP BP 06/09/17 16:00 97 F L 98 16 147/50 06/09/17 12:00 96.8 F L 102 H 16 145/58 06/09/17 08:15 101 H 16 161/65 06/09/17 08:11 106 H 168/68 06/09/17 08:08 112 H 170/70 06/09/17 08:05 122 H 18 165/68 06/09/17 08:00 122 H 16 06/09/17 03:14 97.9 F 79 18 06/09/17 00:00 98.0 F 92 18 06/08/17 20:34 98.0 F 100 20 153/70 06/08/17 20:15 96.8 F L 104 H 17 169/71 06/08/17 19:30 97.8 F 105 H 18 151/68 BP Pulse Ox 06/09/17 16:00 98 06/09/17 12:00 95 06/09/17 08:15 98 06/09/17 08:11 98 06/09/17 08:08 98 06/09/17 08:05 98 06/09/17 08:00 06/09/17 03:14 122/43 100 06/09/17 00:00 143/78 99 06/08/17 20:34 98 06/08/17 20:15 99 06/08/17 19:30 99 Intake and Output 06/09/17 06/09/17 06/09/17 06:59 14:59 22:59 Output Total 091 530 0351 Balance -600 -601 -2300 Output: Urine 084 244 1459 Stool 1 Emesis 100 Other: Voiding Method Indwelling Catheter Indwelling Catheter Indwelling Catheter # Voids 2 # Bowel Movements 1 Weight 78.7 kg 78.7 kg Patient Weight 06/10/17 06:59 Weight 78.7 kg General: [Patient awake, alert and oriented times 3. Patient in no acute distress.] HEENT: [PERRL. EOMI. No pharyngeal erythema or exudate.] Neck: [No adenopathy.] Cardiac: [Heart regular in rate and rhythm. No S3. No S4. No clicks, rubs. No murmur.] Lungs: [Clear to auscultation bilaterally.] Abdomen: [No mass. No organomegaly. Bowel sounds presnt and normoactive in all 4 quadrants.] Extremes: [No edema no cyanosis no claudication normal pulses] : [] Musculoskeletal: [No joint erythema, edema or tenderness.] Skin: [No rash.] Neurologic: [No lateralizing deficits. CN II - XII grossly intact.] Lymphatic: [No adenopathy.] Results CBC & Chem 7: 06/08/17 14:50 06/09/17 15:51 Labs: Abnormal Lab Results - Last 24 Hours (Table) 06/08/17 06/08/17 06/08/17 Range/Units 20:34 21:19 21:55 Potassium (3.5-5.1) mmol/L Carbon Dioxide (22-30) mmol/L BUN (7-17) mg/dL Creatinine (0.52-1.04) mg/dL Glucose (74-99) mg/dL POC Glucose (mg/dL) 214 H (75-99) mg/dL Total Creatine Kinase 26 L (30-135) U/L Triglycerides (<150) mg/dL Urine Glucose (UA) Trace H (Negative) 06/08/17 06/09/17 06/09/17 Range/Units 23:54 03:01 03:01 Potassium 5.9 H (3.5-5.1) mmol/L Carbon Dioxide (22-30) mmol/L BUN (7-17) mg/dL Creatinine (0.52-1.04) mg/dL Glucose (74-99) mg/dL POC Glucose (mg/dL) (75-99) mg/dL Total Creatine Kinase 29 L (30-135) U/L Triglycerides 198 H (<150) mg/dL Urine Glucose (UA) (Negative) 06/09/17 06/09/17 06/09/17 Range/Units 05:18 15:51 16:54 Potassium 5.6 H 5.8 H (3.5-5.1) mmol/L Carbon Dioxide 20 L 21 L (22-30) mmol/L BUN 55 H 50 H (7-17) mg/dL Creatinine 1.40 H 1.30 H (0.52-1.04) mg/dL Glucose 67 L 102 H (74-99) mg/dL POC Glucose (mg/dL) 104 H (75-99) mg/dL Total Creatine Kinase (30-135) U/L Triglycerides (<150) mg/dL Urine Glucose (UA) (Negative) Thrombosis Risk Factor Assmnt - Choose All That Apply Any of the Below Risk Factors Present?: Yes Each Factor Represents 1 point: Obesity (BMI >25) Each Risk Factor Represents 2 Points: Age 61-74 years Thrombosis Risk Factor Assessment Total Risk Factor Score: 3 Thrombosis Risk Factor Assessment Level: Moderate Risk Assessment and Plan (1) Autonomic neuropathy Narrative/Plan: Resolving Secondary rehydration Current Visit: Yes Status: Acute Code(s): G90.9 - DISORDER OF THE AUTONOMIC NERVOUS SYSTEM, UNSPECIFIED SNOMED Code(s): 608361927 (2) Bradycardia Narrative/Plan: Secondary to hyperkalemia which was corrected Current Visit: Yes Status: Acute Code(s): R00.1 - BRADYCARDIA, UNSPECIFIED SNOMED Code(s): 53586632 (3) Hyperkalemia Narrative/Plan: Secondary to acute renal tubular acidosis which is currently being corrected both hyperkalemia and acidosis Current Visit: Yes Status: Acute Code(s): E87.5 - HYPERKALEMIA SNOMED Code (s): 65234238 (4) Hypotension Narrative/Plan: Resolved with rehydration Current Visit: Yes Status: Acute Code(s): I95.9 - HYPOTENSION, UNSPECIFIED SNOMED Code(s): 79023879 Plan: (Nonsteroidals, lisinopril, and thiazide diuretics were STOPPED Acute renal failure is improving Hyperkalemia is improving Nausea is improving Time with Patient: Greater than 30
[2017-06-09] MEDS: METOPROLOL TARTRATE 25 MG TAB PO SCH (19:51)
[2017-06-09] MEDS: PRAVASTATIN SODIUM 40 MG TAB PO SCH (19:51)
[2017-06-09] MEDS: PRAMIPEXOLE 0.125 MG TAB PO SCH (19:51)
[2017-06-09 21:15] LABS: Glucose,Whole Blood 182 mg/dL (75-99)
[2017-06-09] MEDS: INSULIN DETEMIR 100 UNIT/ML 10 ML VIAL SQ SCH (21:37)
[2017-06-09] MEDS: ALPRAZolam 0.25 MG TAB PO PRN (22:33)
[2017-06-10 02:16] LABS: Hemoglobin A1C 6.6 % (4.0-6.0)
[2017-06-10 05:43] LABS: Glucose,Whole Blood 77 mg/dL (75-99)
[2017-06-10] MEDS: INSULIN ASPART 100 UNIT/ML 1 ML 10 ML VIAL SQ SCH ×4 (05:44→21:52)
[2017-06-10] MEDS: PANTOPRAZOLE 40 MG TABLET PO SCH ×2 (06:10→17:05)
[2017-06-10 06:28] LABS: Anion Gap 10 mmol/L; Blood Urea Nitrogen 28 mg/dL (7-17); Calcium 8.7 mg/dL (8.4-10.2); Carbon Dioxide 25 mmol/L (22-30); Chloride 106 mmol/L (98-107); Glucose 73 mg/dL (74-99); Potassium 4.7 mmol/L (3.5-5.1); Sodium 141 mmol/L (137-145)
[2017-06-10] MEDS: hydrALAZINE HCL 25 MG TAB PO SCH ×3 (08:34→21:52)
[2017-06-10] MEDS: amLODIPine 5 MG TAB PO SCH (08:34)
[2017-06-10] MEDS: ASPIRIN 325 MG TAB PO SCH (08:34)
[2017-06-10] MEDS: METOPROLOL TARTRATE 25 MG TAB PO SCH (08:34)
[2017-06-10] MEDS: SODIUM BICARBONATE TAB 650 MG TAB PO SCH ×2 (08:35→20:30)
--- NOTE | 2017-06-10 09:37 | P.PN ---
Subjective Patient is seen in follow-up for acute kidney injury. Renal function is improving and creatinine is down to 0.95 today. She was quite hypotensive on admission which is now resolved. She was also taking NSAIDs at home on a daily basis. She has a Mccollum catheter in place for urinary retention. She is nonoliguric. Oral intake is fair. No vomiting or diarrhea. Denies any chest pain or shortness of breath. Vital signs are stable. General: The patient appeared well nourished and normally developed. HEENT: Head exam is unremarkable. Neck is without jugular venous distension. LUNGS: Lungs are clear to auscultation and percussion. Breath sounds decreased. HEART: Rate and Rhythm are regular. First and second heart sounds normal. No murmurs, rubs or gallops. ABDOMEN: Abdominal exam reveals normal bowel sounds. Non-tender and non- distended. No evidence of peritonitis. EXTREMITITES: No clubbing, cyanosis, or edema. Objective - Vital Signs Vital signs: Vital Signs Temp 97.3 F L 06/10/17 08:00 Pulse 83 06/10/17 08:00 Resp 16 06/10/17 08:00 BP 127/58 06/10/17 08:00 Pulse Ox 95 06/10/17 08:00 Intake & Output 06/09/17 06/10/17 06/10/17 18:59 06:59 18:59 Intake Total 2850 240 Output Total 601 4450 Balance -601 -1600 240 Weight 78.7 kg 80.5 kg Intake: Intake, IV Titration 750 Amount Sodium Chloride 0.9% 1, 750 000 ml @ 75 mls/hr IV . [id number] [facility] Rx#:[id number] Oral 2100 240 Output: Urine 500 4450 Stool 1 Emesis 100 Other: Voiding Method Indwelling Catheter Indwelling Catheter # Voids 2 # Bowel Movements 1 - Labs CBC & Chem 7: 06/08/17 14:50 06/10/17 05:22 Labs: Abnormal Lab Results - Last 24 Hours (Table) 06/09/17 06/09/17 06/09/17 Range/Units 15:51 15:51 16:54 Potassium 5.8 H (3.5-5.1) mmol/L Carbon Dioxide 21 L (22-30) mmol/L BUN 50 H (7-17) mg/dL Creatinine 1.30 H (0.52-1.04) mg/dL Glucose 102 H (74-99) mg/dL POC Glucose (mg/dL) 104 H (75-99) mg/dL Hemoglobin A1c 6.6 H (4.0-6.0) % 06/09/17 06/10/17 Range/Units 21:14 05:22 Potassium (3.5-5.1) mmol/L Carbon Dioxide (22-30) mmol/L BUN 28 H (7-17) mg/dL Creatinine (0.52-1.04) mg/dL Glucose 73 L (74-99) mg/dL POC Glucose (mg/dL) 182 H (75-99) mg/dL Hemoglobin A1c (4.0-6.0) % Assessment and Plan Plan: Assessment: #1. Nonoliguric acute kidney injury mostly prerenal secondary to hypotension and hemodynamic instability. Also component of urinary retention. Improving. Creatinine was 1.9 on admission and is down to 0.95 today. Urinalysis is benign. No evidence of hydronephrosis noted on renal ultrasound. #2. Urinary retention status post Mccollum catheter placement. #3. Severe hyperkalemia secondary to acute kidney injury, metabolic acidosis, urinary retention and further worsened with the use of NSAIDs, DAYLIN inhibitor and triamterene. Improved with medical management. #4. Metabolic acidosis secondary to acute kidney injury. Improved. #5. Bradycardia likely related to hyperkalemia. Resolved. #6. Hypotension. Resolved with IV fluids. Cortisol level normal. #7. Insulin-dependent diabetes mellitus. Plan: Continue normal saline at 75 mL an hour. Maintain oral sodium bicarbonate 650 mg twice daily. Avoid nephrotoxic agents and hypotensive episodes. Maintain Mccollum catheter. Encouraged oral intake.
[2017-06-10] MEDS ORDERED: LOPERAMIDE 2 MG CAP PO PRN (11:05)
[2017-06-10 11:25] LABS: Glucose,Whole Blood 131 mg/dL (75-99)
--- NOTE | 2017-06-10 14:59 | P.PN ---
Subjective Progress Note Date: 06/10/17 06/09/2017-PER DR. DONOVAN This is a 71-year-old female with known history of heart disease diabetes and was being seen by the senior back end java developer yesterday and they felt they noticed he had extreme slow heart rate peaked T waves and absent Ps consistent with hyperkalemia. The ER physician started patient on insulin and Kayexalate calcium gluconate Patient has improved her acute renal failure has improved significantly B ON is 50 greater than 1.3 her potassium is 5.8 at this time Patient had been taking [id number] Aleve that I was not made aware of this and the last visit in the office her lisinopril was decreased from from I believe 10-2.5 in the office patient had been taking Dyazide. Rodolfo , thiazide diuretic and NSAIDs were all stopped Patient has significantly improved 06/10/2017 Patient evaluated at the bedside on rounds with Dr. Donovan. Patient denies shortness of breath or cough. Denies chest pain or pressure. Patients potassium has improved. K this morning is 4.7. BUN 28. Creatinine is 0.95. Patient has a urinary catheter secondary to urinary retention. Patient was hypotensive on admission which has improved with IV fluids. Blood pressure elevated at 183/78. However, previous reading is 127/58. Patient does complain of diarrhea and requesting antidiarrheals. Objective - Vital Signs Vital signs: Vital Signs Temp 97.3 F L 06/10/17 08:00 Pulse 68 06/10/17 11:47 Resp 16 06/10/17 11:50 BP 183/78 06/10/17 11:47 Pulse Ox 93 L 06/10/17 11:47 Intake & Output 06/09/17 06/10/17 06/10/17 18:59 06:59 18:59 Intake Total 2850 240 Output Total 601 4450 1 Balance -601 -1600 239 Weight 78.7 kg 80.5 kg Intake: Intake, IV Titration 750 Amount Sodium Chloride 0.9% 1, 750 000 ml @ 75 mls/hr IV . [id number] [facility] Rx#:[id number] Oral 2100 240 Output: Urine 500 4450 Stool 1 1 Emesis 100 Other: Voiding Method Indwelling Catheter Indwelling Catheter Indwelling Catheter # Voids 2 # Bowel Movements 1 - Exam GENERAL: This is a 71-year-old female in no apparent distress at the time of examination. Pleasant and cooperative. HEENT: Head is atraumatic, normocephalic. Pupils are equal, round, and reactive to light. Sclerae anicteric. Conjunctivae are clear. Mucus membranes of the mouth are moist. Neck is supple. RESPIRATORY: Clear to ausculation. No wheezes, rales, or rhonchi. No use of accessory muscles. Patient maintaining oxygen saturation greater than 92%. No chest wall tenderness is noted on palpation or with deep breathing. CARDIOVASCULAR: Regular rate and rhythm. S1 and S2 noted. No systolic or diastolic murmur auscultated. No JVD noted. No S3 or S4 noted. GASTROINTESTINAL: No distention noted. Abdomen soft and round. Normal active bowel sounds auscultated x 4 quadrants. No pain or tenderness noted upon palpation. INTEGUMENTARY: No cyanosis. No jaundice. No rashes noted. No cellulitis noted. EXTREMITIES: 2+ peripheral pulses. No evidence of peripheral edema. No calf tenderness noted. NEUROLOGIC: Cranial nerves II-XII intact. PSYCHIATRIC: Awake, alert, and oriented X 3. Appropriate affect. Intact judgement and insight. - Labs CBC & Chem 7: 06/08/17 14:50 06/10/17 05:22 Labs: Abnormal Lab Results - Last 24 Hours (Table) 06/09/17 06/09/17 06/09/17 Range/Units 15:51 15:51 16:54 Potassium 5.8 H (3.5-5.1) mmol/L Carbon Dioxide 21 L (22-30) mmol/L BUN 50 H (7-17) mg/dL Creatinine 1.30 H (0.52-1.04) mg/dL Glucose 102 H (74-99) mg/dL POC Glucose (mg/dL) 104 H (75-99) mg/dL Hemoglobin A1c 6.6 H (4.0-6.0) % 06/09/17 06/10/17 06/10/17 Range/Units 21:14 05:22 11:11 Potassium (3.5-5.1) mmol/L Carbon Dioxide (22-30) mmol/L BUN 28 H (7-17) mg/dL Creatinine (0.52-1.04) mg/dL Glucose 73 L (74-99) mg/dL POC Glucose (mg/dL) 182 H 131 H (75-99) mg/dL Hemoglobin A1c (4.0-6.0) % Assessment and Plan Plan: ASSESSMENT: Severe hyperkalemia secondary to acute kidney injury, metabolic acidosis, urinary retention, and further worsened by the use of NSAIDs, RODOLFO inhibitor, and triamterne. Nonoliguric acute kidney injury, mostly prerenal secondary to hypotension and hemodynamic instability, improving Urinary retention, requiring insertion of indwelling urinary catheter Bradycardia, secondary to hyperkalemia, resolved Hypotension Diabetes mellitus, type II PLAN: Cardiology on consult. Appreciate recommendations and input Continue metroprolol daily. monitor heartrate. may increase to BID at follow up appointment with Dr. Donovan Continue hydralazine Nephrology on consult. Appreciate recommendations and input Continue IV fluids and sodium bicarb per nephrology Discontinue indwelling urinary catheter now Imodium PRN Consult physical therapy and occupational therapy Home meds as appropriate Monitor labs GI prophylaxis: Protonix 40 mg PO BID DVT prophylaxis: Venodyne's to bilateral lower extremities Monitor vital signs and address as appropriate Discharge planning: Patient to return home when stable Further recommendations pending patient's course Anticipate discharge home tomorrow morning if patient is voiding okay after catheter is removed Nurse practitioner note has been reviewed by physician. Signing provider agrees with the documented findings, assessment, and plan of care.
[2017-06-10] MEDS ORDERED: RX INFO: IV CONTRAST WAS GIVEN 1 EACH MISC MISCELLANE PRN (15:26)
--- NOTE | 2017-06-10 15:38 | P.PN ---
Subjective Progress Note Date: 06/10/17 This is a 71-year-old female sent over from Dr. Canales's office. She has noncritical moderate CAD, she is known to have type 2 diabetes, hypertension, hyperlipidemia, she presented to the office with symptoms of weakness fatigue and lack of energy, she was found to have a slow heart rate. Her potassium level on admission was noted to be 8.1. Patient was given Kayexalate. Her potassium level today is 4.7. Heart rate in the high 60s, blood pressure 182/78. Patient is having episodes of diarrhea stools, breathing is stable. Echocardiogram with Doppler study was performed which revealed an ejection fraction of 60-65%. Objective - Vital Signs Vital signs: Vital Signs Temp 97.3 F L 06/10/17 08:00 Pulse 68 06/10/17 11:47 Resp 16 06/10/17 11:50 BP 183/78 06/10/17 11:47 Pulse Ox 93 L 06/10/17 11:47 Intake & Output 06/09/17 06/10/17 06/10/17 18:59 06:59 18:59 Intake Total 2850 480 Output Total 601 4450 801 Balance -601 -1600 -321 Weight 78.7 kg 80.5 kg Intake: Intake, IV Titration 750 Amount Sodium Chloride 0.9% 1, 750 000 ml @ 75 mls/hr IV . [id number] [facility] Rx#:[id number] Oral 2100 480 Output: Urine 500 4450 800 Stool 1 1 Emesis 100 Other: Voiding Method Indwelling Catheter Indwelling Catheter Indwelling Catheter # Voids 2 2 # Bowel Movements 1 - Exam PHYSICAL EXAMINATION: HEENT: Head is atraumatic, normocephalic. Pupils equal, round. Neck is supple. There is no elevated jugular venous pressure. HEART EXAMINATION: Heart S1 and S2 systolic murmur is heard CHEST EXAMINATION: Lungs reveal scattered coarse rhonchi throughout. ABDOMEN: Soft, nontender. Bowel sounds are heard. No organomegaly noted. EXTREMITIES: 2+ peripheral pulses with no evidence of peripheral edema and no calf tenderness noted. NEUROLOGIC patient is awake, alert and oriented -3. . - Labs CBC & Chem 7: 06/08/17 14:50 06/10/17 05:22 Labs: Abnormal Lab Results - Last 24 Hours (Table) 06/09/17 06/09/1706/09/18 Range/Units 15:51 15:51 16:54 Potassium 5.8 H (3.5-5.1) mmol/L Carbon Dioxide 21 L (22-30) mmol/L BUN 50 H (7-17) mg/dL Creatinine 1.30 H (0.52-1.04) mg/dL Glucose 102 H (74-99) mg/dL POC Glucose (mg/dL) 104 H (75-99) mg/dL Hemoglobin A1c 6.6 H (4.0-6.0) % 06/09/17 06/10/17 06/10/17 Range/Units 21:14 05:22 11:11 Potassium (3.5-5.1) mmol/L Carbon Dioxide (22-30) mmol/L BUN 28 H (7-17) mg/dL Creatinine (0.52-1.04) mg/dL Glucose 73 L (74-99) mg/dL POC Glucose (mg/dL) 182 H 131 H (75-99) mg/dL Hemoglobin A1c (4.0-6.0) % Assessment and Plan Plan: Assessment and plan #1 dehydration #2 hyperkalemia, with evidence of bradycardia #3 diabetes #4 hypertension #5 hyperlipidemia #6 noncritical coronary artery disease Plan Heart rate today is maintaining in the 60s. We will continue current medications. Norvasc 5 mg daily has been added for blood pressure. Normal left ventricular systolic function by echo. DNP note has been reviewed, I agree with a documented findings and plan of care. Patient was seen and examined.
--- NOTE | 2017-06-10 15:38 | PN ---
PROGRESS NOTE This lady is doing remarkably well. She came in with hyperkalemia, bradycardia, nausea, vomiting. Hyperkalemia has resolved. She was on lisinopril and Dyazide combination, I have discontinued this. We will place her on hydralazine, increase activity, BUN, creatinine is normal. She appears to be euvolemic. Vital signs are stable. S1, S2 heard normally. Lungs revealed decent air entry. Abdomen and lower extremity exam is unchanged. Plan is to continue current medications, increase activity and she will follow up with her gasoline dragline operator in the next two weeks in our office. We will continue current medical regimen and increase activity. MMODL / IJN: [id number] /
[2017-06-10 16:45] LABS: Glucose,Whole Blood 132 mg/dL (75-99)
[2017-06-10] MEDS: SODIUM CHLORIDE 0.9% 1,000 ML IV SCH (20:27)
[2017-06-10] MEDS: PRAVASTATIN SODIUM 40 MG TAB PO SCH (20:30)
[2017-06-10] MEDS: PRAMIPEXOLE 0.125 MG TAB PO SCH (20:30)
[2017-06-10 20:57] LABS: Glucose,Whole Blood 183 mg/dL (75-99)
[2017-06-10] MEDS ORDERED: METOPROLOL TARTRATE 25 MG TAB PO SCH (21:00)
[2017-06-10] MEDS: ALPRAZolam 0.25 MG TAB PO PRN (21:52)
[2017-06-10] MEDS: INSULIN DETEMIR 100 UNIT/ML 10 ML VIAL SQ SCH (21:52)
[2017-06-11] MEDS: SODIUM CHLORIDE 0.9% 1,000 ML IV SCH (02:53)
[2017-06-11 04:40] VITALS: TEMP 97.1
[2017-06-11 05:58] LABS: Glucose,Whole Blood 102 mg/dL (75-99)
[2017-06-11] MEDS: INSULIN ASPART 100 UNIT/ML 1 ML 10 ML VIAL SQ SCH (06:02)
[2017-06-11] MEDS: PANTOPRAZOLE 40 MG TABLET PO SCH (06:04)
[2017-06-11 06:25] LABS: Anion Gap 10 mmol/L; Blood Urea Nitrogen 17 mg/dL (7-17); Calcium 9.4 mg/dL (8.4-10.2); Carbon Dioxide 25 mmol/L (22-30); Chloride 105 mmol/L (98-107); Glucose 102 mg/dL (74-99); Potassium 4.4 mmol/L (3.5-5.1); Sodium 140 mmol/L (137-145)
[2017-06-11] MEDS: hydrALAZINE HCL 25 MG TAB PO SCH (08:29)
[2017-06-11] MEDS: ASPIRIN 325 MG TAB PO SCH (08:29)
[2017-06-11] MEDS: SODIUM BICARBONATE TAB 650 MG TAB PO SCH (08:30)
[2017-06-11] MEDS: amLODIPine 5 MG TAB PO SCH (08:30)
[2017-06-11 08:32] VITALS: BP 140/61; PULSE 103
[2017-06-11] MEDS ORDERED: METOPROLOL TARTRATE 25 MG TAB PO SCH (09:00)
--- NOTE | 2017-06-11 09:05 | P.PN ---
Subjective Patient is seen in follow-up for acute kidney injury. Renal function is improving and creatinine is down to 0.9 today. She was quite hypotensive on admission which is now resolved. She was also taking NSAIDs at home on a daily basis. She had a Mccollum catheter in place for urinary retention which was removed yesterday. She is nonoliguric and has been voiding. Oral intake is fair. No vomiting or diarrhea. Denies any chest pain or shortness of breath. Vital signs are stable. General: The patient appeared well nourished and normally developed. HEENT: Head exam is unremarkable. Neck is without jugular venous distension. LUNGS: Lungs are clear to auscultation and percussion. Breath sounds decreased. HEART: Rate and Rhythm are regular. First and second heart sounds normal. No murmurs, rubs or gallops. ABDOMEN: Abdominal exam reveals normal bowel sounds. Non-tender and non- distended. No evidence of peritonitis. EXTREMITITES: No clubbing, cyanosis, or edema. Objective - Vital Signs Vital signs: Vital Signs Temp 97.1 F L 06/11/17 04:00 Pulse 103 H 06/11/17 08:00 Resp 16 06/11/17 08:00 BP 140/61 06/11/17 08:00 Pulse Ox 97 06/11/17 08:00 Intake & Output 06/10/17 06/11/17 06/11/17 18:59 06:59 18:59 Intake Total 720 200 200 Output Total 802 2502 1 Balance -82 -2302 199 Weight 80.5 kg Intake: Oral 720 200 200 Output: Urine 800 2500 Stool 2 2 1 Other: Voiding Method Indwelling Catheter Toilet Toilet # Voids 2 2 - Labs CBC & Chem 7: 06/08/17 14:50 06/11/17 05:33 Labs: Abnormal Lab Results - Last 24 Hours (Table) 06/10/17 06/10/17 06/10/17 Range/Units 11:11 16:42 20:54 Glucose (74-99) mg/dL POC Glucose (mg/dL) 131 H 132 H 183 H (75-99) mg/dL 06/11/17 06/11/17 Range/Units 05:33 05:55 Glucose 102 H (74-99) mg/dL POC Glucose (mg/dL) 102 H (75-99) mg/dL Assessment and Plan Plan: Assessment: #1. Nonoliguric acute kidney injury mostly prerenal secondary to hypotension and hemodynamic instability. Also component of urinary retention. Improving. Creatinine was 1.9 on admission and is down to 0.9 today. Urinalysis is benign. No evidence of hydronephrosis noted on renal ultrasound. #2. Urinary retention status post Mccollum catheter placement - removed. #3. Severe hyperkalemia secondary to acute kidney injury, metabolic acidosis, urinary retention and further worsened with the use of NSAIDs, DAYLIN inhibitor and triamterene. Improved with medical management. #4. Metabolic acidosis secondary to acute kidney injury. Improved. #5. Bradycardia likely related to hyperkalemia. Resolved. #6. Hypotension. Resolved with IV fluids. Cortisol level normal. #7. Insulin-dependent diabetes mellitus. Plan: Heplock IVFs. D/c sodium bicarbonate. Avoid nephrotoxic agents and hypotensive episodes. Encouraged oral intake. I advised her to avoid NSAIDs on a daily basis. Stable to be discharged from nephrology standpoint.
--- NOTE | 2017-06-11 14:09 | P.DS ---
Providers Date of admission: 06/08/17 16:01 Expected date of discharge: 06/11/17 Attending physician: Jorge Edmonds Consults: 06/08/17 16:01 Consult Physician Stat Consulting Provider: Serenity Murcia Consult Reason/Comments: Renal failure Do you want consulting provider notified?: Yes Consult Physician Urgent Consulting Provider: Wendy Warren Consult Reason/Comments: Pericardial, hypertension Do you want consulting provider notified?: Yes Primary care physician: Jorge Edmonds [facility] Course: 71-year-old female who presented to the emergency room after she was evaluated by her logistics program manager and was found to be bradycardic with peaked T waves and absent P waves. The patient's potassium upon admission to the hospitalist found to be 8.1. Creatinine on admission was 1.91. The patient received IV insulin, dextrose, and Kayexalate. Consultations were placed to nephrology and cardiology. The patient also admitted to daily use of NSAIDs and states that she takes at least 2 Aleve per day. Patient's DAYLIN inhibitor and diuretics have been discontinued. The patient was started on Norvasc 5 mg daily and hydralazine 25 mg 3 times a day per cardiology. Her metoprolol was decreased to 25 mg daily instead of twice daily dosing. Her Pravachol was also decreased to 40 mg per cardiology. The patient was also found to have urinary retention during hospitalization. An indwelling urinary catheter was inserted which has since been discontinued and patient has been voiding without difficulty. The patient was hypotensive upon admission which has resolved with the administration of IV fluids. The patient's acute renal failure has resolved. BUN 17. Creatinine 0.90. Potassium is 4.4. Patient remains in sinus rhythm with heart rate in the 60s. Blood pressure is in the 140s. The patient was deemed stable for discharge per Dr. Edmonds. She is to follow up on an outpatient basis with Dr. Edmonds. Her logistics program manager and office rental clerk. The patient was encouraged to avoid NSAIDs. Her diuretics and DAYLIN inhibitor's are to be held at the time of discharge. Prescriptions percent the patient's preferred pharmacy for Norvasc 5 mg daily, hydralazine 25 mg 3 times a day, metoprolol 25 mg daily, and pravastatin 40 mg at at bedtime. DISCHARGE DIAGNOSIS: Severe hyperkalemia secondary to acute kidney injury, metabolic acidosis, urinary retention, and further worsened by the use of NSAIDs, DAYLIN inhibitor, and triamterne, resolved at the time of discharge Nonoliguric acute kidney injury, mostly prerenal secondary to hypotension and hemodynamic instability, resolved at the time of discharge Urinary retention, requiring insertion of indwelling urinary catheter, resolved at time of discharge Bradycardia, secondary to hyperkalemia, resolved Hypotension, resolved with IV hydration Diabetes mellitus, type II Nurse practitioner note has been reviewed by physician. Signing provider agrees with the documented findings, assessment, and plan of care. Patient Condition at Discharge: Good Plan - Discharge Summary Discharge Rx Participant: Yes New Discharge Prescriptions: New amLODIPine [Norvasc] 5 mg PO DAILY #30 tab hydrALAZINE HCL [Apresoline] 25 mg PO TID #90 tab Metoprolol Tartrate [Lopressor] 25 mg PO DAILY #30 tab Pravastatin Sodium [Pravachol] 40 mg PO HS #30 tab Continue Insulin Glargine,Hum.rec.anlog [Lantus Solostar] 40 unit SQ HS Pramipexole [Mirapex] 0.125 mg PO HS Multivitamin/Iron/Folic Acid [Centrum Complete Multivit Tab] 1 tab PO DAILY Insulin Aspart [NovoLOG Flexpen] 14 unit SQ AC-TID Aspirin 81 mg PO DAILY ALPRAZolam [Xanax] 0.25 mg PO TID PRN PRN Reason: Anxiety metFORMIN HCL 1,000 mg PO BID Omeprazole [PriLOSEC] 20 mg PO AC-BID Discontinued Triamterene-Hctz 37.5-25Mg [Dyazide 37.5-25 Capsule] 1 cap PO DAILY Naproxen Sodium [Aleve] 220 mg PO BID Metoprolol Tartrate [Lopressor] 25 mg PO BID Pravastatin Sodium [Pravachol] 80 mg PO DAILY Lisinopril 20 mg PO DAILY Discharge Medication List ALPRAZolam [Xanax] 0.25 mg PO TID PRN 10/20/13 [History] Aspirin 81 mg PO DAILY 10/20/13 [History] Insulin Aspart [NovoLOG Flexpen] 14 unit SQ AC-TID 10/20/13 [History] Insulin Glargine,Hum.rec.anlog [Lantus Solostar] 40 unit SQ HS 10/20/13 [History ] Multivitamin/Iron/Folic Acid [Centrum Complete Multivit Tab] 1 tab PO DAILY 01/24 [History] Pramipexole [Mirapex] 0.125 mg PO HS 10/20/13 [History] Omeprazole [PriLOSEC] 20 mg PO AC-BID 05/28/17 [History] metFORMIN HCL 1,000 mg PO BID 05/28/17 [History] Metoprolol Tartrate [Lopressor] 25 mg PO DAILY #30 tab 06/11/17 [Rx] Pravastatin Sodium [Pravachol] 40 mg PO HS #30 tab 06/11/17 [Rx] amLODIPine [Norvasc] 5 mg PO DAILY #30 tab 06/11/17 [Rx] hydrALAZINE HCL [Apresoline] 25 mg PO TID #90 tab 06/11/17 [Rx] Follow up Appointment(s)/Referral(s): Yossi Reyes MD [STAFF PHYSICIAN] - 07/03/17 11:45 am (Thursday Previously scheduled appointment) Jorge Edmonds Jr, DO [Primary Care Provider] - 06/16/17 9:30 am (Thursday) Stanley Keller DO [STAFF PHYSICIAN] - 2 Weeks (Spoke to radiology receptionist. Office will call with appointment time) Patient Instructions/Handouts: Hyperkalemia (DC), Bradycardia (DC) Discharge Disposition: HOME SELF-CARE
--- NOTE | 2017-06-11 14:21 | P.PN ---
Subjective Progress Note Date: 06/11/17 This is a 71-year-old female sent over from Dr. Canales's office. She has noncritical moderate CAD, she is known to have type 2 diabetes, hypertension, hyperlipidemia, she presented to the office with symptoms of weakness fatigue and lack of energy, she was found to have a slow heart rate. Her potassium level on admission was noted to be 8.1. Patient was given Kayexalate. Her potassium level today is 4.7. Heart rate in the high 60s, blood pressure 182/78. Patient is having episodes of diarrhea stools, breathing is stable. Echocardiogram with Doppler study was performed which revealed an ejection fraction of 60-65%. 06/11/2017 Patient seen and examined this morning,blood pressure 140/60 with a heart rate in the 80s, 97% on room air.sodium 140, potassium 4.4, BUN 17, creatinine 0.9. Diarrhea stable. Objective - Vital Signs Vital signs: Vital Signs Temp 97.1 F L 06/11/17 04:00 Pulse 103 H 06/11/17 08:00 Resp 16 06/11/17 08:00 BP 140/61 06/11/17 08:00 Pulse Ox 97 06/11/17 08:00 Intake & Output 06/10/17 06/11/17 06/11/17 18:59 06:59 18:59 Intake Total 720 200 200 Output Total 802 2502 1 Balance -82 -2302 199 Weight 80.5 kg Intake: Oral 720 200 200 Output: Urine 800 2500 Stool 2 2 1 Other: Voiding Method Indwelling Catheter Toilet Toilet # Voids 2 2 - Exam PHYSICAL EXAMINATION: HEENT: Head is atraumatic, normocephalic. Pupils equal, round. Neck is supple. There is no elevated jugular venous pressure. HEART EXAMINATION: Heart S1 and S2 systolic murmur is heard CHEST EXAMINATION: Lungs reveal scattered coarse rhonchi throughout. ABDOMEN: Soft, nontender. Bowel sounds are heard. No organomegaly noted. EXTREMITIES: 2+ peripheral pulses with no evidence of peripheral edema and no calf tenderness noted. NEUROLOGIC patient is awake, alert and oriented -3. . - Labs CBC & Chem 7: 06/08/17 14:50 06/11/17 05:33 Labs: Abnormal Lab Results - Last 24 Hours (Table) 0206/10/17 06/11/17 Range/Units 16:42 20:54 05:33 Glucose 102 H (74-99) mg/dL POC Glucose (mg/dL) 132 H 183 H (75-99) mg/dL 06/11/17 Range/Units 05:55 Glucose (74-99) mg/dL POC Glucose (mg/dL) 102 H (75-99) mg/dL Assessment and Plan Plan: Assessment and plan #1 dehydration #2 hyperkalemia, with evidence of bradycardia #3 diabetes #4 hypertension #5 hyperlipidemia #6 noncritical coronary artery disease Plan Heart rate today is maintaining in the 80s. We will continue current medications. we will follow this patient with you now on an as-needed basis only, please don't hesitate to call with any questions. Follow-up appointment will be made post discharge. DNP note has been reviewed, I agree with a documented findings and plan of care. Patient was seen and examined.
== END 2017-06-11 11:20 | disposition home or self-care (01) | DRG 683 ==
LOC: EC 14:25 → 6SEL 16:01
PROVIDERS: ADMIT Family Medicine; ATTEND Family Medicine
DX: N17.0 Acute kidney failure with tubular necrosis (principal); E87.2 Acidosis; I95.9 Hypotension, unspecified; E11.43 Type 2 diabetes mellitus with diabetic autonomic (poly)neuropathy; I11.0 Hypertensive heart disease with heart failure; E87.5 Hyperkalemia; I50.9 Heart failure, unspecified; E83.52 Hypercalcemia; R00.1 Bradycardia, unspecified; F32.9 Major depressive disorder, single episode, unspecified; F41.9 Anxiety disorder, unspecified; I25.10 Atherosclerotic heart disease of native coronary artery without angina pectoris; K21.9 Gastro-esophageal reflux disease without esophagitis; R33.9 Retention of urine, unspecified; H26.9 Unspecified cataract; E78.00 Pure hypercholesterolemia, unspecified; E86.0 Dehydration; R19.7 Diarrhea, unspecified; M19.90 Unspecified osteoarthritis, unspecified site; Z87.442 Personal history of urinary calculi; I25.2 Old myocardial infarction; Z79.1 Long term (current) use of non-steroidal anti-inflammatories (NSAID); Z79.899 Other long term (current) drug therapy; Z79.4 Long term (current) use of insulin; Z79.82 Long term (current) use of aspirin; Z80.6 Family history of leukemia; Z83.3 Family history of diabetes mellitus; Z87.891 Personal history of nicotine dependence; Z90.710 Acquired absence of both cervix and uterus
CPT/HCPCS: 36415; 51702; 71045; 76770; 80048; 80053; 80061; 81003; 82533; 82550; 82553; 83036; 83735; 84132; 84484; 85025; 93005; 93306; 94640; 96361; 96365; 96375; 96376; 99291

== ENCOUNTER → 2018-02-16 | Outpatient (CLI) | payer MEDICARE, OTHER ==
[2018-02-16 18:10] LABS: Anion Gap 10.4 mmol/L (4.00-12.00); Carbon Dioxide 23.6 mmol/L (21.6-31.8); Potassium 4.7 mmol/L (3.5-5.5)
== END | disposition home or self-care (01) ==
LOC: LABWHC1 09:33
PROVIDERS: ATTEND Internal Medicine Clinical Cardiac Electrophysiology
DX: I10 Essential (primary) hypertension (principal); E11.9 Type 2 diabetes mellitus without complications
CPT/HCPCS: 36415; 80048

== ENCOUNTER 2018-07-30 15:44 | Observation (INO) | payer MEDICARE, OTHER ==
[2018-07-30 15:50] LABS: Glucose,Whole Blood 92 mg/dL (75-99)
[2018-07-30] MEDS ORDERED: SODIUM CHLORIDE 0.9% 1,000 ML IV STA (15:50)
--- NOTE | 2018-07-30 16:02 | ED ---
Weakness HPI - General Chief complaint: Weakness Stated complaint: Weakness Time Seen by Provider: 07/30/18 15:47 Source: patient, RN notes reviewed, old records reviewed Mode of arrival: EMS Limitations: no limitations - History of Present Illness Initial comments: This is a 73-year-old female the ER for evaluation presented today for evaluation regarding not feeling well. Not feeling well feels like prior to arrival, prompting her to call EMS. Patient does have history of heart disease and kidney failure. History of elevated potassium. And low blood sugar. Patient is diabetic. No recent travel history no sick contacts no fevers. She did have chest pain yesterday chest pain or substernal radiating across her chest. No chest pain today no shortness of breath. She did feel fevers and chills and some shakes. No recent change in medications or known sick contacts MD Complaint: generalized weakness, lack of energy -: days(s) Location: generalized Severity: moderate Severity scale (1-10): 3 Quality: aching Consistency: constant Improves with: none Worsens with: none Context: history of similar Associated Symptoms: diaphoresis, fever/chills, loss of appetite - Related Data Home Medications Medication Instructions Recorded Confirmed ALPRAZolam [Xanax] 0.25 mg PO TID PRN 10/20/13 07/30/18 Aspirin 81 mg PO DAILY 10/20/13 07/30/18 Insulin Aspart [NovoLOG Flexpen] 14 unit SQ AC-TID 10/20/13 07/30/18 Insulin Glargine,Hum.rec.anlog 40 unit SQ HS 10/20/13 07/30/18 [Lantus Solostar] Multivitamin/Iron/Folic Acid 1 tab PO DAILY 10/20/13 07/30/18 [Centrum Complete Multivit Tab] Pramipexole [Mirapex] 0.125 mg PO HS 10/20/13 07/30/18 Omeprazole [PriLOSEC] 20 mg PO AC-BID 05/28/17 07/30/18 metFORMIN HCL 1,000 mg PO BID 05/28/17 07/30/18 Previous Rx's Medication Instructions Recorded Metoprolol Tartrate [Lopressor] 25 mg PO DAILY #30 tab 06/11/17 Pravastatin Sodium [Pravachol] 40 mg PO HS #30 tab 06/11/17 amLODIPine [Norvasc] 5 mg PO DAILY #30 tab 06/11/17 hydrALAZINE HCL [Apresoline] 25 mg PO TID #90 tab 06/11/17 Allergies Allergy/AdvReac Type Severity Reaction Status Date / Time No Known Allergies Allergy Verified 07/30/18 16:43 Review of Systems ROS Statement: Those systems with pertinent positive or pertinent negative responses have been documented in the HPI. ROS Other: All systems not noted in ROS Statement are negative. Past Medical History Past Medical History: Coronary Artery Disease (CAD), Heart Failure, Diabetes Mellitus, Eye Disorder, GERD/Reflux, Hyperlipidemia, Hypertension, Myocardial I nfarction (PR), Osteoarthritis (OA) Additional Past Medical History / Comment(s): L cataract, hx of kidney stones Last Myocardial Infarction Date:: 05/2012 History of Any Multi-Drug Resistant Organisms: None Reported Past Surgical History: Heart Catheterization, Hysterectomy Additional Past Surgical History / Comment(s): Colonoscopy Past Anesthesia/Blood Transfusion Reactions: No Reported Reaction Past Psychological History: Anxiety, Depression Smoking Status: Former smoker Past Alcohol Use History: None Reported Past Drug Use History: None Reported - Past Family History Brother(s) Family Medical History: Cancer, Diabetes Mellitus Mother Family Medical History: Cancer Additional Family Medical History / Comment(s): Leukemia General Exam Limitations: no limitations General appearance: alert, in no apparent distress Head exam: Present: atraumatic, normocephalic, normal inspection Eye exam: Present: normal appearance, PERRL, EOMI. Absent: scleral icterus, conjunctival injection, periorbital swelling ENT exam: Present: normal exam, mucous membranes moist Neck exam: Present: normal inspection. Absent: tenderness, meningismus, lymphadenopathy Respiratory exam: Present: normal lung sounds bilaterally. Absent: respiratory distress, wheezes, rales, rhonchi, stridor Cardiovascular Exam: Present: regular rate, normal rhythm, normal heart sounds. Absent: systolic murmur, diastolic murmur, rubs, gallop, clicks GI/Abdominal exam: Present: soft, normal bowel sounds. Absent: distended, tenderness, guarding, rebound, rigid Extremities exam: Present: normal inspection, full ROM, normal capillary refill. Absent: tenderness, pedal edema, joint swelling, calf tenderness Back exam: Present: normal inspection Neurological exam: Present: alert, oriented X3, CN II-XII intact Psychiatric exam: Present: normal affect, normal mood Skin exam: Present: warm, dry, intact, normal color. Absent: rash Course Vital Signs 07/30/18 07/30/18 07/30/18 15:49 15:50 16:00 Temperature 97.8 F Pulse Rate 82 68 71 Respiratory 23 16 11 L Rate Blood Pressure 186/63 186/63 O2 Sat by Pulse 95 97 Oximetry 07/30/18 07/30/18 07/30/18 16:10 16:20 16:30 Temperature Pulse Rate 73 76 Respiratory 18 21 Rate Blood Pressure 186/63 186/63 157/56 O2 Sat by Pulse Oximetry 07/30/18 07/30/18 07/30/18 16:40 16:50 17:00 Temperature Pulse Rate 73 81 86 Respiratory 15 23 13 Rate Blood Pressure 166/76 166/76 166/76 O2 Sat by Pulse 94 L 95 97 Oximetry 07/30/18 07/30/18 17:10 17:20 Temperature Pulse Rate 74 79 Respiratory 14 12 Rate Blood Pressure 196/55 196/55 O2 Sat by Pulse 96 96 Oximetry - Reevaluation(s) Reevaluation #1: 07/30/18 17:52 Medical record is reviewed Reevaluation #2: 07/30/18 17:52 Spoke with patient and family, patient states she still not feeling well EKG Findings - EKG Comments: EKG Findings:: EKG shows sinus rhythm rate of 70, ID [id number], QRS 94, QTc 451 Medical Decision Making - Medical Decision Making 73 female the ER for evaluation evaluation of weakness. Patient is to chest pain yesterday no chest pain today weakness not that today she thought it might be her blood sugar running low blood sugar was 90 is maintained greater than 90. Patient will be admitted for cardiac observation with history of significant heart disease with prolonged life support - Lab Data Result diagrams: 07/30/18 16:15 07/30/18 16:15 Lab Results 07/30/18 07/30/18 07/30/18 Range/Units 15:48 16:15 16:15 WBC 12.7 H (3.8-10.6) k/uL RBC 4.67 (3.80-5.40) m/uL Hgb 13.1 (11.4-16.0) gm/dL Hct 41.5 (34.0-46.0) % MCV 88.8 (80.0-100.0) fL MCH 28.1 (25.0-35.0) pg MCHC 31.7 (31.0-37.0) g/dL RDW 14.0 (11.5-15.5) % Plt Count 345 (150-450) k/uL Neutrophils % 71 % Lymphocytes % 23 % Monocytes % 4 % Eosinophils % 1 % Basophils % 0 % Neutrophils # 9.0 H (1.3-7.7) k/uL Lymphocytes # 2.9 (1.0-4.8) k/uL Monocytes # 0.5 (0-1.0) k/uL Eosinophils # 0.1 (0-0.7) k/uL Basophils # 0.1 (0-0.2) k/uL PT (9.0-12.0) sec INR (<1.2) APTT (22.0-30.0) sec Sodium 138 (137-145) mmol/L Potassium 5.0 (3.5-5.1) mmol/L Chloride 104 (98-107) mmol/L Carbon Dioxide 23 (22-30) mmol/L Anion Gap 11 mmol/L BUN 19 H (7-17) mg/dL Creatinine 0.71 (0.52-1.04) mg/dL Est GFR (CKD-EPI)AfAm >90 (>60 ml/min/1.73 sqM) Est GFR (CKD-EPI)NonAf 85 (>60 ml/min/1.73 sqM) Glucose 136 H (74-99) mg/dL POC Glucose (mg/dL) 92 (75-99) mg/dL POC Glu Pointer Helper ID Mikayla Yeager Plasma Lactic Acid Preet (0.7-2.0) mmol/L Calcium 9.3 (8.4-10.2) mg/dL Phosphorus 3.6 (2.5-4.5) mg/dL Magnesium 2.0 (1.6-2.3) mg/dL Total Bilirubin 0.6 (0.2-1.3) mg/dL AST 34 (14-36) U/L ALT 31 (9-52) U/L Alkaline Phosphatase 66 (38-126) U/L Troponin I (0.000-0.034) ng/mL Total Protein 7.4 (6.3-8.2) g/dL Albumin 4.5 (3.5-5.0) g/dL TSH 1.730 (0.465-4.680) mIU/L Urine Color Urine Appearance (Clear) Urine pH (5.0-8.0) Ur Specific [place] (1.001-1.035) Urine Protein (Negative) Urine Glucose (UA) (Negative) Urine Ketones (Negative) Urine Blood (Negative) Urine Nitrite (Negative) Urine Bilirubin (Negative) Urine Urobilinogen (<2.0) mg/dL Ur Leukocyte Esterase (Negative) Urine RBC (0-5) /hpf Urine WBC (0-5) /hpf Urine WBC Clumps (None) /hpf Ur Squamous Epith Cells (0-4) /hpf Urine Bacteria (None) /hpf Urine Mucus (None) /hpf 07/30/18 07/30/18 07/30/18 Range/Units 16:15 16:15 16:15 WBC (3.8-10.6) k/uL RBC (3.80-5.40) m/uL Hgb (11.4-16.0) gm/dL Hct (34.0-46.0) % MCV (80.0-100.0) fL MCH (25.0-35.0) pg MCHC (31.0-37.0) g/dL RDW (11.5-15.5) % Plt Count (150-450) k/uL Neutrophils % % Lymphocytes % % Monocytes % % Eosinophils % % Basophils % % Neutrophils # (1.3-7.7) k/uL Lymphocytes # (1.0-4.8) k/uL Monocytes # (0-1.0) k/uL Eosinophils # (0-0.7) k/uL Basophils # (0-0.2) k/uL PT 10.0 (9.0-12.0) sec INR 0.9 (<1.2) APTT 24.9 (22.0-30.0) sec Sodium (137-145) mmol/L Potassium (3.5-5.1) mmol/L Chloride (98-107) mmol/L Carbon Dioxide (22-30) mmol/L Anion Gap mmol/L BUN (7-17) mg/dL Creatinine (0.52-1.04) mg/dL Est GFR (CKD-EPI)AfAm (>60 ml/min/1.73 sqM) Est GFR (CKD-EPI)NonAf (>60 ml/min/1.73 sqM) Glucose (74-99) mg/dL POC Glucose (mg/dL) (75-99) mg/dL POC Glu Pointer Helper ID Plasma Lactic Acid Preet 2.0 (0.7-2.0) mmol/L Calcium (8.4-10.2) mg/dL Phosphorus (2.5-4.5) mg/dL Magnesium (1.6-2.3) mg/dL Total Bilirubin (0.2-1.3) mg/dL AST (14-36) U/L ALT (9-52) U/L Alkaline Phosphatase (38-126) U/L Troponin I <0.012 (0.000-0.034) ng/mL Total Protein (6.3-8.2) g/dL Albumin (3.5-5.0) g/dL TSH (0.465-4.680) mIU/L Urine Color Urine Appearance (Clear) Urine pH (5.0-8.0) Ur Specific [place] (1.001-1.035) Urine Protein (Negative) Urine Glucose (UA) (Negative) Urine Ketones (Negative) Urine Blood (Negative) Urine Nitrite (Negative) Urine Bilirubin (Negative) Urine Urobilinogen (<2.0) mg/dL Ur Leukocyte Esterase (Negative) Urine RBC (0-5) /hpf Urine WBC (0-5) /hpf Urine WBC Clumps (None) /hpf Ur Squamous Epith Cells (0-4) /hpf Urine Bacteria (None) /hpf Urine Mucus (None) /hpf 07/30/18 Range/Units 17:06 WBC (3.8-10.6) k/uL RBC (3.80-5.40) m/uL Hgb (11.4-16.0) gm/dL Hct (34.0-46.0) % MCV (80.0-100.0) fL MCH (25.0-35.0) pg MCHC (31.0-37.0) g/dL RDW (11.5-15.5) % Plt Count (150-450) k/uL Neutrophils % % Lymphocytes % % Monocytes % % Eosinophils % % Basophils % % Neutrophils # (1.3-7.7) k/uL Lymphocytes # (1.0-4.8) k/uL Monocytes # (0-1.0) k/uL Eosinophils # (0-0.7) k/uL Basophils # (0-0.2) k/uL PT (9.0-12.0) sec INR (<1.2) APTT (22.0-30.0) sec Sodium (137-145) mmol/L Potassium (3.5-5.1) mmol/L Chloride (98-107) mmol/L Carbon Dioxide (22-30) mmol/L Anion Gap mmol/L BUN (7-17) mg/dL Creatinine (0.52-1.04) mg/dL Est GFR (CKD-EPI)AfAm (>60 ml/min/1.73 sqM) Est GFR (CKD-EPI)NonAf (>60 ml/min/1.73 sqM) Glucose (74-99) mg/dL POC Glucose (mg/dL) (75-99) mg/dL POC Glu Pointer Helper ID Plasma Lactic Acid Preet (0.7-2.0) mmol/L Calcium (8.4-10.2) mg/dL Phosphorus (2.5-4.5) mg/dL Magnesium (1.6-2.3) mg/dL Total Bilirubin (0.2-1.3) mg/dL AST (14-36) U/L ALT (9-52) U/L Alkaline Phosphatase (38-126) U/L Troponin I (0.000-0.034) ng/mL Total Protein (6.3-8.2) g/dL Albumin (3.5-5.0) g/dL TSH (0.465-4.680) mIU/L Urine Color Light Yellow Urine Appearance Cloudy H (Clear) Urine pH 7.0 (5.0-8.0) Ur Specific [place] 1.006 (1.001-1.035) Urine Protein Negative (Negative) Urine Glucose (UA) Negative (Negative) Urine Ketones Negative (Negative) Urine Blood Negative (Negative) Urine Nitrite Negative (Negative) Urine Bilirubin Negative (Negative) Urine Urobilinogen <2.0 (<2.0) mg/dL Ur Leukocyte Esterase Large H (Negative) Urine RBC 4 (0-5) /hpf Urine WBC 132 H (0-5) /hpf Urine WBC Clumps Few H (None) /hpf Ur Squamous Epith Cells 2 (0-4) /hpf Urine Bacteria Occasional H (None) /hpf Urine Mucus Rare H (None) /hpf - Radiology Data Radiology results: report reviewed (Chest x-rays negative for acute disease), image reviewed Disposition Clinical Impression: Generalized weakness, Diabetes, Hypoglycemia, Chest pain Disposition: ADMITTED IP TO [facility] Condition: Undetermined Is patient prescribed a controlled substance at d/c from ED?: No Referrals: Jorge Edmonds Jr, [Primary Care Provider] - 1-2 days
[2018-07-30 16:30] LABS: Basophils # (A) 0.1 k/uL (0-0.2); Basophils % (A) 0 %; Eosinophils # (A) 0.1 k/uL (0-0.7); Eosinophils % (A) 1 %; HCT 41.5 % (34.0-46.0); HGB 13.1 gm/dL (11.4-16.0); Lymphocytes # (A) 2.9 k/uL (1.0-4.8); Lymphocytes % (A) 23 %; MCH 28.1 pg (25.0-35.0); MCHC 31.7 g/dL (31.0-37.0); MCV 88.8 fL (80.0-100.0); Monocytes # (A) 0.5 k/uL (0-1.0); Monocytes % (A) 4 %; Neutrophils % (A) 71 %; Platelet Count 345 k/uL (150-450); RBC 4.67 m/uL (3.80-5.40); WBC 12.7 k/uL (3.8-10.6)
[2018-07-30 16:42] LABS: ALT 31 U/L (9-52); AST 34 U/L (14-36); Albumin 4.5 g/dL (3.5-5.0); Alkaline Phosphatase 66 U/L (38-126); Anion Gap 11 mmol/L; Blood Urea Nitrogen 19 mg/dL (7-17); Calcium 9.3 mg/dL (8.4-10.2); Carbon Dioxide 23 mmol/L (22-30); Chloride 104 mmol/L (98-107); Glucose 136 mg/dL (74-99); Phosphorus 3.6 mg/dL (2.5-4.5); Sodium 138 mmol/L (137-145); Total Bilirubin 0.6 mg/dL (0.2-1.3); Total Protein 7.4 g/dL (6.3-8.2)
--- NOTE | 2018-07-30 16:44 | XR ---
EXAMINATION TYPE: XR chest 2V DATE OF EXAM: 07/30/2018 COMPARISON: 06/08/2017 INDICATION: Weakness TECHNIQUE: Frontal and lateral views of the chest are obtained. FINDINGS: The heart size is normal. The pulmonary vasculature is normal. The lungs are clear. IMPRESSION: 1. No acute pulmonary process.
[2018-07-30 16:46] LABS: INR 0.9 (<1.2); Partial Thromboplastin Time 24.9 sec (22.0-30.0)
[2018-07-30 17:26] LABS: Appearance,Urine Cloudy (Clear); Bacteria,Urine Occasional /hpf; Bilirubin,Urine Negative (Negative); Blood,Urine Negative (Negative); Color,Urine Light Yellow; Glucose,Urine (UA) Negative (Negative); Ketones,Urine Negative (Negative); Leukocyte Esterase,Urine Large (Negative); Mucus,Urine Rare /hpf; Nitrite,Urine Negative (Negative); Protein,Urine Negative (Negative); RBC,Urine 4 /hpf (0-5); Specific Gravity,Urine 1.006 (1.001-1.035); Squamous Epithelial Cell,Urine 2 /hpf (0-4); Urobilinogen,Urine <2.0 mg/dL (<2.0)
[2018-07-30] MEDS ORDERED: NITROGLYCERIN SL TABS 0.4 MG TAB SUBLINGUAL PRN (17:50)
[2018-07-30 19:49] VITALS: BMI 20.6
[2018-07-30] MEDS ORDERED: ALPRAZolam 0.25 MG TAB PO PRN (20:15)
[2018-07-30] MEDS ORDERED: MELATONIN 3 MG TABLET PO PRN (20:24)
[2018-07-30 20:53] LABS: Glucose,Whole Blood 183 mg/dL (75-99)
[2018-07-30] MEDS ORDERED: PRAMIPEXOLE 0.125 MG TAB PO SCH (21:00)
[2018-07-30] MEDS ORDERED: PRAVASTATIN SODIUM 40 MG TAB PO SCH (21:00)
[2018-07-30] MEDS ORDERED: INSULIN DETEMIR (LEVEMIR) 100 UNIT/ML SYR SQ SCH (21:00)
[2018-07-30] MEDS: hydrALAZINE HCL 25 MG TAB PO SCH (21:52)
[2018-07-31 04:50] LABS: Cholesterol 115 mg/dL (<200); HDL Cholesterol 52 mg/dL (40-60); LDL Cholesterol,Calculated 41 mg/dL (0-99); Triglycerides 112 mg/dL (<150)
[2018-07-31 06:41] LABS: Glucose,Whole Blood 107 mg/dL (75-99)
[2018-07-31] MEDS ORDERED: PANTOPRAZOLE 40 MG TABLET PO SCH (07:30)
[2018-07-31] MEDS ORDERED: metFORMIN 500 MG TAB PO SCH ×2 (07:30→09:00)
[2018-07-31] MEDS ORDERED: INSULIN ASPART (NovoLOG) 100 UNIT/ML VIAL SQ SCH ×2 (07:30)
[2018-07-31] MEDS: hydrALAZINE HCL 25 MG TAB PO SCH (07:42)
[2018-07-31 08:56] VITALS: BP 160/75; PULSE 96; RESP 18; TEMP 97.8
[2018-07-31] MEDS ORDERED: amLODIPine 5 MG TAB PO SCH (09:00)
[2018-07-31] MEDS ORDERED: METOPROLOL TARTRATE 25 MG TAB PO SCH (09:00)
[2018-07-31] MEDS ORDERED: ASPIRIN 325 MG TAB PO SCH (09:00)
[2018-07-31] MEDS ORDERED: amLODIPine 5 MG TAB PO STA (09:28)
--- NOTE | 2018-07-31 09:54 | P.HPIM ---
History of Present Illness H&P Date: 07/31/18 Chief Complaint: Weakness fatigue This is a 73-year-old female well-known to my practice presented to the hospital via the emergency room complaining of weakness and general malaise. Patient presented with her adult sons and this patient is extremely nervous individual and wishes having episodes of recall of an admission a year ago in which she hadn't had acute renal tubular acidosis and necrosis developed hyper kalemia and subsequently underwent a cardiac event. Patient is impacted doing very well this morning her examination was unremarkable she does however appear to have a urinary tract infection will be discharged home today with instructions to follow-up Review of Systems Constitutional: Reports malaise Ears, nose, mouth and throat: Reports as per HPI Cardiovascular: Reports as per HPI, Reports high blood pressure Respiratory: Reports as per HPI Gastrointestinal: Reports as per HPI Genitourinary: Reports dysuria Menstruation: Reports as per HPI Musculoskeletal: Reports as per HPI Integumentary: Reports as per HPI Neurological: Reports as per HPI Past Medical History Past Medical History: Coronary Artery Disease (CAD), Heart Failure, Diabetes Elizabeth litus, Eye Disorder, GERD/Reflux, Hyperlipidemia, Hypertension, Myocardial Infarction ([place]), Osteoarthritis (OA) Additional Past Medical History / Comment(s): L cataract, hx of kidney stones Last Myocardial Infarction Date:: 05/2012 History of Any Multi-Drug Resistant Organisms: None Reported Past Surgical History: Heart Catheterization, Hysterectomy Additional Past Surgical History / Comment(s): Colonoscopy Past Anesthesia/Blood Transfusion Reactions: No Reported Reaction Past Psychological History: Anxiety Smoking Status: Former smoker Past Alcohol Use History: None Reported Past Drug Use History: None Reported - Past Family History Brother(s) Family Medical History: Cancer Mother Family Medical History: Cancer Additional Family Medical History / Comment(s): Leukemia Medications and Allergies Home Medications Medication Instructions Recorded Confirmed Type ALPRAZolam [Xanax] 0.25 mg PO TID PRN 10/20/13 07/30/18 History Aspirin 81 mg PO DAILY 10/20/13 07/30/18 History Insulin Aspart [NovoLOG Flexpen] 14 unit SQ AC-TID 10/20/13 07/30/18 History Insulin Glargine,Hum.rec.anlog 40 unit SQ HS 10/20/13 07/30/18 History [Lantus Solostar] Multivitamin/Iron/Folic Acid 1 tab PO DAILY 10/20/13 07/30/18 History [Centrum Complete Multivit Tab] Pramipexole [Mirapex] 0.125 mg PO HS 10/20/13 07/30/18 History Omeprazole [PriLOSEC] 20 mg PO AC-BID 05/28/17 07/30/18 History metFORMIN HCL 1,000 mg PO BID 05/28/17 07/30/18 History Metoprolol Tartrate [Lopressor] 25 mg PO DAILY #30 tab 06/11/17 07/30/18 Rx Pravastatin Sodium [Pravachol] 40 mg PO HS #30 tab 06/11/17 07/30/18 Rx amLODIPine [Norvasc] 5 mg PO DAILY #30 tab 06/11/17 07/30/18 Rx hydrALAZINE HCL [Apresoline] 25 mg PO TID #90 tab 06/11/17 07/30/18 Rx Allergies Allergy/AdvReac Type Severity Reaction Status Date / Time No Known Allergies Allergy Verified 07/30/18 16:43 Physical Exam Osteopathic Statement: *. No significant issues noted on an osteopathic structural exam other than those noted in the History and Physical/Consult. Vitals: Vital Signs Temp Pulse Pulse Resp BP BP Pulse Ox 07/31/18 08:56 96 18 07/31/18 08:55 97.8 F 96 18 160/75 99 07/31/18 04:00 98.0 F 86 16 157/67 94 L 07/31/18 00:00 90 18 163/69 94 L 07/30/18 20:00 97.5 F L 81 18 158/83 95 07/30/18 19:01 97.2 F L 84 16 152/59 96 07/30/18 18:10 98.2 F 102 H 20 171/61 07/30/18 18:00 80 16 171/64 07/30/18 17:50 84 17 171/64 07/30/18 17:40 72 14 171/64 07/30/18 17:30 77 18 196/55 07/30/18 17:20 79 12 196/55 96 07/30/18 17:10 74 14 196/55 96 07/30/18 17:00 86 13 166/76 97 07/30/18 16:50 81 23 166/76 95 07/30/18 16:40 73 15 166/76 94 L 07/30/18 16:30 157/56 07/30/18 16:20 76 21 186/63 07/30/18 16:10 73 18 186/63 07/30/18 16:00 71 11 L 186/63 07/30/18 15:50 68 16 97 07/30/18 15:49 97.8 F 82 23 186/63 95 Intake and Output 07/30/18 07/31/18 07/31/18 22:59 06:59 14:59 Intake Total 900 240 Balance 900 240 Intake: Amount of Fluid Infused ( 900 ml) Oral 240 Other: Voiding Method Toilet Toilet Toilet # Voids 1 2 Weight 54.6 kg 84.6 kg General: [Patient awake, alert and oriented times 3. Patient in no acute distress.] HEENT: [PERRL. EOMI. No pharyngeal erythema or exudate.] Neck: [No adenopathy.] Cardiac: [Heart regular in rate and rhythm. No S3. No S4. No clicks, rubs. No murmur.] Lungs: [Clear to auscultation bilaterally.] Abdomen: [No mass. No organomegaly. Bowel sounds presnt and normoactive in all 4 quadrants.] Extremes: [No edema no cyanosis no claudication normal pulses] : Normal female genitalia Musculoskeletal: [No joint erythema, edema or tenderness.] Skin: [No rash.] Neurologic: [No lateralizing deficits. CN II - XII grossly intact.] Lymphatic: [No adenopathy.] Results CBC & Chem 7: 07/30/18 16:15 07/30/18 16:15 Labs: Abnormal Lab Results - Last 24 Hours (Table) 07/30/18 07/30/18 07/30/18 Range/Units 16:15 16:15 17:06 WBC 12.7 H (3.8-10.6) k/uL Neutrophils # 9.0 H (1.3-7.7) k/uL BUN 19 H (7-17) mg/dL Glucose 136 H (74-99) mg/dL POC Glucose (mg/dL) (75-99) mg/dL Urine Appearance Cloudy H (Clear) Ur Leukocyte Esterase Large H (Negative) Urine WBC 132 H (0-5) /hpf Urine WBC Clumps Few H (None) /hpf Urine Bacteria Occasional H (None) /hpf Urine Mucus Rare H (None) /hpf 07/30/18 07/31/18 Range/Units 20:52 06:38 WBC (3.8-10.6) k/uL Neutrophils # (1.3-7.7) k/uL BUN (7-17) mg/dL Glucose (74-99) mg/dL POC Glucose (mg/dL) 183 H 107 H (75-99) mg/dL Urine Appearance (Clear) Ur Leukocyte Esterase (Negative) Urine WBC (0-5) /hpf Urine WBC Clumps (None) /hpf Urine Bacteria (None) /hpf Urine Mucus (None) /hpf Microbiology - Last 24 Hours (Table) 07/30/18 17:06 Urine Culture - Preliminary Urine,Voided Thrombosis Risk Factor Assmnt - Choose All That Apply Other Risk Factors: Yes Each Risk Factor Represents 2 Points: Age 61-74 years Thrombosis Risk Factor Assessment Total Risk Factor Score: 2 Thrombosis Risk Factor Assessment Level: Low Risk Assessment and Plan (1) Urinary tract infection Current Visit: Yes Status: Acute Code(s): N39.0 - URINARY TRACT INFECTION, SITE NOT SPECIFIED SNOMED Code(s): 85921729 (2) Generalized weakness Current Visit: Yes Status: Acute Code(s): R53.1 - WEAKNESS SNOMED Code(s): 85274051 (3) Hypoglycemia Current Visit: Yes Status: Acute Code(s): E16.2 - HYPOGLYCEMIA, UNSPECIFIED SNOMED Code(s): 560481211 (4) Diabetes Current Visit: Yes Status: Chronic Code(s): E11.9 - TYPE 2 DIABETES MELLITUS WITHOUT COMPLICATIONS SNOMED Code(s): 33815644 Plan: Will increase hydralazine to 50 mg 3 times daily for hypertension We'll discharge patient home on Zithromax 500 mg 1 by mouth daily for 3 days for urinary tract infection We'll reevaluate patient Thursday or Thursday and office to assess patient's improvement Time with Patient: Greater than 30
--- NOTE | 2018-07-31 09:55 | CONS ---
CONSULTATION Flory is a 73-year-old lady with history of hypertension, diabetes, dyslipidemia, who presented to the hospital having had an episode of dizziness. The patient states that she felt that she had a low blood sugar episode. She was sitting, felt dizzy and done well and these symptoms have gradually resolved. She did not have chest pain, difficulty in breathing, palpitations, or syncope. There is no history of focal neurological deficits. EKG shows sinus rhythm with poor R-wave progression with no acute ischemic changes. She had 2 sets of cardiac enzymes that are negative. At the time of my evaluation this morning, she appears fine and is eager to go home. Her UA shows evidence of urinary tract infection and she is receiving ceftriaxone for the same. Patient tells me that she had a carotid duplex, stress test and echocardiogram within the last several months and they have all been within normal limits. From cardiac standpoint, no further workup is needed, ambulate her if she is feeling well, discharge her home and treat her UTI. PAST MEDICAL HISTORY: Past medical history is significant for mild nonobstructive coronary artery disease, hypertension, dyslipidemia, diabetes. CURRENT MEDICATIONS: Current medications include metformin 1000 b.i.d., hydralazine 25 t.i.d., Norvasc 5 q, daily, Pravachol 40 q. daily, Mirapex, Prilosec, multivitamin, Lopressor 25 mg daily, insulin, aspirin and Xanax. ALLERGIES: There are no known drug allergies. FAMILY HISTORY: Family history is negative for premature coronary artery disease. SOCIAL HISTORY: Social history is negative for smoking, EtOH abuse, or drug abuse. REVIEW OF SYSTEMS: HEENT is unremarkable. CARDIAC: As described above. RESPIRATORY: Negative. GI: Negative, GENITOURINARY: Negative. ALLERGY/IMMUNOLOGY: Negative. SKIN: Negative. MUSCULOSKELETAL: Negative. ENDOCRINE: Negative. HEMATOLOGICAL: Negative. DERM: Negative. CONSTITUTIONAL: Negative. ONCOLOGICAL: Negative. WILDLIFE CONSERVATIONIST EXAM: Negative for near syncope. PHYSICAL EXAMINATION: On exam, patient is comfortable at rest. Vital signs are stable. There is no jugular venous distention. Carotid upstroke is diminished. There is no bruit. Chest exam reveals good air entry bilaterally. Heart exam reveals first and second heart sounds. No gallop. No murmur. No rub. Abdomen is soft, nontender. Examination of extremities did not reveal any edema. Peripheral pulses are felt. WILDLIFE CONSERVATIONIST exam did not reveal focal neurological deficits. EKG is within normal limits. Cardiac enzymes are negative. ASSESSMENT: 1. Dizziness probably noncardiac in origin. 2. Mild nonobstructive coronary artery disease. 3. Hypertension, uncontrolled hypertension. 4. Dyslipidemia. 5. Diabetes. PLAN: I will increase the dose of Norvasc to 10 mg daily. From cardiac standpoint, we will obtain an echocardiogram on her and opted that she can be discharged home and arrange outpatient followup with Dr. Reyes. MMODL / IJN: [id number] /
--- NOTE | 2018-07-31 09:57 | P.DS ---
Providers Date of admission: 07/30/18 17:50 Expected date of discharge: 07/31/18 Attending physician: Jorge Edmonds Consults: 07/31/18 02:56 Consult Physician Routine Consulting Provider: Domo Sosa Consult Reason/Comments: Chest pain Do you want consulting provider notified?: Yes Primary care physician: Jorge Edmonds - Discharge Diagnosis(es) (1) Urinary tract infection Current Visit: Yes Status: Acute (2) Generalized weakness Current Visit: Yes Status: Acute (3) Hypoglycemia Current Visit: Yes Status: Acute (4) Diabetes Current Visit: Yes Status: Chronic Hospital Course: Patient was admitted last night for generalized weakness Was found to have urinary tract infection as well as mildly elevated blood pressure Hydralazine was increased to 50 mg 3 times daily Patient was given 1 g of Rocephin IV 2 will discharge home on azithromycin 500 mg 1 pill daily 3 We'll reevaluate in my office Thursday or Thursday to assess arcus efficacy of treatment Patient Condition at Discharge: Stable Plan - Discharge Summary Discharge Rx Participant: No New Discharge Prescriptions: No Action Insulin Glargine,Hum.rec.anlog [Lantus Solostar] 40 unit SQ HS Pramipexole [Mirapex] 0.125 mg PO HS Multivitamin/Iron/Folic Acid [Centrum Complete Multivit Tab] 1 tab PO DAILY Insulin Aspart [NovoLOG Flexpen] 14 unit SQ AC-TID Aspirin 81 mg PO DAILY ALPRAZolam [Xanax] 0.25 mg PO TID PRN PRN Reason: Anxiety metFORMIN HCL 1,000 mg PO BID Omeprazole [PriLOSEC] 20 mg PO AC-BID amLODIPine [Norvasc] 5 mg PO DAILY #30 tab hydrALAZINE HCL [Apresoline] 25 mg PO TID #90 tab Metoprolol Tartrate [Lopressor] 25 mg PO DAILY #30 tab Pravastatin Sodium [Pravachol] 40 mg PO HS #30 tab Discharge Medication List ALPRAZolam [Xanax] 0.25 mg PO TID PRN 10/20/13 [History] Aspirin 81 mg PO DAILY 10/20/13 [History] Insulin Aspart [NovoLOG Flexpen] 14 unit SQ AC-TID 10/20/13 [History] Insulin Glargine,Hum.rec.anlog [Lantus Solostar] 40 unit SQ HS 07/10/14 [History] Multivitamin/Iron/Folic Acid [Centrum Complete Multivit Tab] 1 tab PO DAILY 10/20/13 [History] Pramipexole [Mirapex] 0.125 mg PO HS 10/20/13 [History] Omeprazole [PriLOSEC] 20 mg PO AC-BID 05/28/17 [History] metFORMIN HCL 1,000 mg PO BID 05/28/17 [History] Metoprolol Tartrate [Lopressor] 25 mg PO DAILY #30 tab 06/11/17 [Rx] Pravastatin Sodium [Pravachol] 40 mg PO HS #30 tab 06/11/17 [Rx] amLODIPine [Norvasc] 5 mg PO DAILY #30 tab 06/11/17 [Rx] hydrALAZINE HCL [Apresoline] 25 mg PO TID #90 tab 06/11/17 [Rx] Follow up Appointment(s)/Referral(s): Jorge Edmonds Jr, [Primary Care Provider] - 1-2 days
[2018-07-31] MEDS ORDERED: MULTIVITAMINS, THERA 1 EACH TAB PO SCH (12:00)
[2018-08-01] MEDS ORDERED: amLODIPine 10 MG TAB PO SCH (09:00)
== END 2018-07-31 10:55 | disposition home or self-care (01) ==
LOC: EC 15:44 → 3SCARD 17:50
PROVIDERS: ADMIT Family Medicine; ATTEND Family Medicine
DX: N39.0 Urinary tract infection, site not specified (principal); R07.89 Other chest pain; R53.1 Weakness; E78.5 Hyperlipidemia, unspecified; F41.9 Anxiety disorder, unspecified; R42 Dizziness and giddiness; I11.0 Hypertensive heart disease with heart failure; E11.9 Type 2 diabetes mellitus without complications; I25.10 Atherosclerotic heart disease of native coronary artery without angina pectoris; I25.2 Old myocardial infarction; I50.9 Heart failure, unspecified; K21.9 Gastro-esophageal reflux disease without esophagitis; Z79.4 Long term (current) use of insulin; Z79.82 Long term (current) use of aspirin; Z79.899 Other long term (current) drug therapy; Z80.6 Family history of leukemia; Z83.3 Family history of diabetes mellitus; Z87.442 Personal history of urinary calculi; Z87.891 Personal history of nicotine dependence; Z90.710 Acquired absence of both cervix and uterus
CPT/HCPCS: 96366; 96361; 96365; 99285; 36415; 93005; 80061; 80053; 83605; 83735; 84100; 84443; 84484 ×2; 85025; 85610; 85730; 81001; 87086; 71046; G0378 ×2; J0696 ×2

== ENCOUNTER → 2019-04-11 | Outpatient (CLI) | payer MEDICARE, OTHER ==
--- NOTE | 2019-04-11 18:46 | CT ---
EXAMINATION TYPE: CT abdomen pelvis w con DATE OF EXAM: 04/11/2019 COMPARISON: 06/02/2012 HISTORY: Left lower quadrant pain. CT DLP: 1167.2 mGycm Automated exposure control for dose reduction was used. CONTRAST: Performed with IV Contrast, patient injected with 100 mL of Isovue 300. Lung bases are clear of infiltrate. Heart size is normal. There is no pleural effusion. There is smal l hiatal hernia. Stomach is otherwise intact. There appears to be multiple small calcified gallstones . The bile ducts are not dilated. Liver shows no focal defect. Spleen and pancreas appear normal. The re is a 7 mm noncalcified nodule adjacent to the left diaphragm probably unchanged and consistent wit h benign disease. There is no adrenal mass. Kidneys show satisfactory contrast opacification. There is no hydronephrosi s. Ureters are not dilated. There is no retroperitoneal adenopathy. There is subcutaneous increased d ensity over the anterior mid abdomen that is probably injection site. Bladder distends smoothly. There is no inguinal hernia. There is no free fluid in the pelvis. There i s hysterectomy. Delayed images show normal renal excretion. There is no mesenteric edema. There is no ascites or free air. There is no sign of a bowel obstructio n. Lumbar spine is intact. Bony pelvis appears intact. There is 3 cm area of increased soft tissue de nsity at the base of the urinary bladder the urethra. Clinical significance is not clear. This is als o present on old CT scan and unchanged and of doubtful significance. IMPRESSION: No evidence of renal stone or obstruction. There is clearing of the left renal obstruction compared t o old exam. Cholelithiasis unchanged.
== END | disposition home or self-care (01) ==
LOC: RADCTMAIN 15:28
PROVIDERS: ATTEND Family Medicine
DX: K80.20 Calculus of gallbladder without cholecystitis without obstruction (principal)
CPT/HCPCS: 82565; 84520; 74177; 36415; Q9967 ×2

== ENCOUNTER 2019-04-17 16:36 | Emergency (ER) | payer MEDICARE, OTHER ==
--- NOTE | 2019-04-17 16:50 | ED ---
General Adult HPI - General Chief complaint: Abdominal Pain Stated complaint: Flank pain Time Seen by Provider: 04/17/19 16:38 Source: patient Mode of arrival: EMS Limitations: no limitations - History of Present Illness Initial comments: Patient presents the ED complaining of having constant and worsening left flank and left lower abdominal pain for the past week or so. Patient also states that she has had nausea/vomiting and urinary frequency over that timeframe. Patient had an unremarkable computed tomography scan of her abdomen/pelvis done 6 days ago. Patient denies trauma or injury, fever or chills, headache, focal neuro deficit, chest pain, dyspnea, dizziness, upper abdominal pain, diarrhea or constipation, bloody or melanotic stool, hematemesis, dysuria, hematuria, or any other symptoms or complaints. - Related Data Home Medications Medication Instructions Recorded Confirmed ALPRAZolam [Xanax] 0.25 mg PO TID PRN 10/20/13 07/30/18 Aspirin 81 mg PO DAILY 10/20/13 07/30/18 Insulin Aspart [NovoLOG Flexpen] 14 unit SQ AC-TID 10/20/13 07/30/18 Insulin Glargine,Hum.rec.anlog 40 unit SQ HS 10/20/13 07/30/18 [Lantus Solostar] Multivitamin/Iron/Folic Acid 1 tab PO DAILY 10/20/13 07/30/18 [Centrum Complete Multivit Tab] Pramipexole [Mirapex] 0.125 mg PO HS 10/20/13 07/30/18 Omeprazole [PriLOSEC] 20 mg PO AC-BID 05/28/17 07/30/18 metFORMIN HCL 1,000 mg PO BID 05/28/17 07/30/18 Previous Rx's Medication Instructions Recorded Metoprolol Tartrate [Lopressor] 25 mg PO DAILY #30 tab 06/11/17 Pravastatin Sodium [Pravachol] 40 mg PO HS #30 tab 06/11/17 amLODIPine [Norvasc] 5 mg PO DAILY #30 tab 06/11/17 hydrALAZINE HCL [Apresoline] 25 mg PO TID #90 tab 06/11/17 Azithromycin [Zithromax Tri-Carson] 500 mg PO DAILY 3 Days #3 tab 07/31/18 hydrALAZINE HCL [Apresoline] 50 mg PO TID #90 tab 07/31/18 Allergies Allergy/AdvReac Type Severity Reaction Status Date / Time No Known Allergies Allergy Verified 04/17/19 16:45 Review of Systems ROS Statement: Those systems with pertinent positive or pertinent negative responses have been documented in the HPI. ROS Other: All systems not noted in ROS Statement are negative. Past Medical History Past Medical History: Coronary Artery Disease (CAD), Heart Failure, Diabetes Mellitus, Eye Disorder, GERD/Reflux, Hyperlipidemia, Hypertension, Myocardial Infarction (MS), Osteoarthritis (OA) Additional Past Medical History / Comment(s): L cataract, hx of kidney stones Last Myocardial Infarction Date:: 05/2012 History of Any Multi-Drug Resistant Organisms: None Reported Past Surgical History: Heart Catheterization, Hysterectomy Additional Past Surgical History / Comment(s): Colonoscopy Past Anesthesia/Blood Transfusion Reactions: No Reported Reaction Past Psychological History: Anxiety Smoking Status: Former smoker Past Alcohol Use History: None Reported Past Drug Use History: None Reported - Past Family History Brother(s) Family Medical History: Cancer Mother Family Medical History: Cancer Additional Family Medical History / Comment(s): Leukemia General Exam Limitations: no limitations General appearance: alert, in no apparent distress Head exam: Present: atraumatic, normocephalic Eye exam: Present: normal appearance, EOMI ENT exam: Present: mucous membranes moist Neck exam: Present: other (Trachea is in midline) Respiratory exam: Present: normal lung sounds bilaterally. Absent: respiratory distress, wheezes, rales, rhonchi Cardiovascular Exam: Present: regular rate, normal rhythm, normal heart sounds, other (Normal radial pulses bilaterally) GI/Abdominal exam: Present: soft, normal bowel sounds, other (Mild left lower quadrant tenderness; a small area of ecchymosis is noted to the abdominal wall just inferior and to the right of the patient's umbilicus). Absent: distended, guarding, rebound Extremities exam: Absent: tenderness, pedal edema, calf tenderness Back exam: Absent: tenderness, CVA tenderness (R), CVA tenderness (L) Neurological exam: Present: alert, oriented X3. Absent: motor sensory deficit Psychiatric exam: Present: normal affect, normal mood Skin exam: Present: warm, dry, intact, normal color Course Vital Signs 04/17/19 04/17/19 04/17/19 16:42 19:20 20:26 Temperature 98 F 98.5 F 98 F Pulse Rate 93 88 78 Respiratory 16 18 18 Rate Blood Pressure 227/84 224/88 162/64 O2 Sat by Pulse 97 96 96 Oximetry Medical Decision Making - Medical Decision Making Patient states that her pain has improved with ED treatment. Patient has not any vomiting while in the ED. Patient denies development of any new symptoms while in the ED. Patient's abdomen is soft and without any surgical signs on examination. Patient's labs are fairly unremarkable. Patient's CT abdomen/pelvis shows findings consistent with abdominal wall contusion in the area of her pain and is otherwise fairly unremarkable. Patient is noted to have bruising on her abdominal wall on exam, and I suspect that her pain may be secondary to abdominal wall contusion/ecchymosis. Patient states that she gives herself insulin shots in her abdominal wall, and she was instructed to avoid the left side of her abdominal wall when giving herself insulin shots. Patient's blood pressure has improved while in the ED. Patient states that she is scheduled to see her primary care provider (Dr. Edmonds) tomorrow. Patient and family are aware of the patient's test results, and patient feels comfort able going home with her family at this time. She was counseled about abdominal pain/flank pain, nausea/vomiting, abdominal wall ecchymosis/contusion and hypertension. Patient was clearly explained return and follow-up instructions, and she was instructed to return to the ED should she develop new or worsening symptoms. Patient feels comfortable with this plan. Patient states that she has pain and antiemetic medication at home. - Lab Data Result diagrams: 04/17/19 16:55 04/17/19 16:55 Lab Results 04/17/19 04/17/19 04/17/19 Range/Units 16:55 16:55 16:55 WBC 8.5 (3.8-10.6) k/uL RBC 4.78 (3.80-5.40) m/uL Hgb 13.7 (11.4-16.0) gm/dL Hct 42.2 (34.0-46.0) % MCV 88.3 (80.0-100.0) fL MCH 28.6 (25.0-35.0) pg MCHC 32.4 (31.0-37.0) g/dL RDW 13.5 (11.5-15.5) % Plt Count 322 (150-450) k/uL Neutrophils % 66 % Lymphocytes % 25 % Monocytes % 6 % Eosinophils % 0 % Basophils % 0 % Neutrophils # 5.6 (1.3-7.7) k/uL Lymphocytes # 2.2 (1.0-4.8) k/uL Monocytes # 0.5 (0-1.0) k/uL Eosinophils # 0.0 (0-0.7) k/uL Basophils # 0.0 (0-0.2) k/uL Sodium 137 (137-145) mmol/L Potassium 4.2 (3.5-5.1) mmol/L Chloride 102 (98-107) mmol/L Carbon Dioxide 23 (22-30) mmol/L Anion Gap 12 mmol/L BUN 16 (7-17) mg/dL Creatinine 0.79 (0.52-1.04) mg/dL Est GFR (CKD-EPI)AfAm 87 (>60 ml/min/1.73 sqM) Est GFR (CKD-EPI)NonAf 75 (>60 ml/min/1.73 sqM) Glucose 179 H (74-99) mg/dL Plasma Lactic Acid Preet 1.5 (0.7-2.0) mmol/L Calcium 9.6 (8.4-10.2) mg/dL Total Bilirubin 0.6 (0.2-1.3) mg/dL AST 30 (14-36) U/L ALT 22 (4-34) U/L Alkaline Phosphatase 61 (38-126) U/L Total Protein 7.5 (6.3-8.2) g/dL Albumin 4.5 (3.5-5.0) g/dL Amylase 34 (30-110) U/L Lipase 20 L (23-300) U/L Urine Color Urine Appearance (Clear) Urine pH (5.0-8.0) Ur Specific [place] (1.001-1.035) Urine Protein (Negative) Urine Glucose (UA) (Negative) Urine Ketones (Negative) Urine Blood (Negative) Urine Nitrite (Negative) Urine Bilirubin (Negative) Urine Urobilinogen (<2.0) mg/dL Ur Leukocyte Esterase (Negative) Urine RBC (0-5) /hpf Urine WBC (0-5) /hpf Ur Squamous Epith Cells (0-4) /hpf 01/05/20 Range/Units 19:19 WBC (3.8-10.6) k/uL RBC (3.80-5.40) m/uL Hgb (11.4-16.0) gm/dL Hct (34.0-46.0) % MCV (80.0-100.0) fL MCH (25.0-35.0) pg MCHC (31.0-37.0) g/dL RDW (11.5-15.5) % Plt Count (150-450) k/uL Neutrophils % % Lymphocytes % % Monocytes % % Eosinophils % % Basophils % % Neutrophils # (1.3-7.7) k/uL Lymphocytes # (1.0-4.8) k/uL Monocytes # (0-1.0) k/uL Eosinophils # (0-0.7) k/uL Basophils # (0-0.2) k/uL Sodium (137-145) mmol/L Potassium (3.5-5.1) mmol/L Chloride (98-107) mmol/L Carbon Dioxide (22-30) mmol/L Anion Gap mmol/L BUN (7-17) mg/dL Creatinine (0.52-1.04) mg/dL Est GFR (CKD-EPI)AfAm (>60 ml/min/1.73 sqM) Est GFR (CKD-EPI)NonAf (>60 ml/min/1.73 sqM) Glucose (74-99) mg/dL Plasma Lactic Acid Preet (0.7-2.0) mmol/L Calcium (8.4-10.2) mg/dL Total Bilirubin (0.2-1.3) mg/dL AST (14-36) U/L ALT (4-34) U/L Alkaline Phosphatase (38-126) U/L Total Protein (6.3-8.2) g/dL Albumin (3.5-5.0) g/dL Amylase (30-110) U/L Lipase (23-300) U/L Urine Color Light Yellow Urine Appearance Clear (Clear) Urine pH 6.5 (5.0-8.0) Ur Specific [place] 1.035 (1.001-1.035) Urine Protein 1+ H (Negative) Urine Glucose (UA) Negative (Negative) Urine Ketones 1+ H (Negative) Urine Blood Negative (Negative) Urine Nitrite Negative (Negative) Urine Bilirubin Negative (Negative) Urine Urobilinogen <2.0 (<2.0) mg/dL Ur Leukocyte Esterase Trace H (Negative) Urine RBC <1 (0-5) /hpf Urine WBC 3 (0-5) /hpf Ur Squamous Epith Cells <1 (0-4) /hpf - Radiology Data Radiology results: report reviewed (CT abdomen/pelvis with IV contrast shows: 1. Soft tissue contusion superficial soft tissues midline to left lower quadrant, 2. Cholelithiasis, 3. Moderate fatty infiltration liver) Disposition Clinical Impression: Abdominal pain, Flank pain, Nausea and vomiting, Superficial bruising of abdominal wall, Hypertension Disposition: HOME SELF-CARE Condition: Stable Instructions (If sedation given, give patient instructions): Acute Nausea and Vomiting (ED), Contusion in Adults (ED), Abdominal Pain (ED), Hypertension (ED), Flank Pain (ED) Additional Instructions: Return to the ER immediately should you develop new or worsening pain, pers istent vomiting, a fever, a headache, numbness or weakness, chest pain, shortness of breath, feeling dizzy or faint, or near worsening symptoms. Follow up with your primary care provider tomorrow as scheduled. Is patient prescribed a controlled substance at d/c from ED?: No Referrals: Jorge Edmonds Jr, DO [Primary Care Provider] - 1-2 days Time of Disposition: 20:31
[2019-04-17] MEDS ORDERED: HYDROmorphone 0.5 MG/0.5 ML SYRINGE IVP STA ×2 (16:57→19:23)
[2019-04-17] MEDS ORDERED: SODIUM CHLORIDE 0.9% 1,000 ML IV STA (16:57)
[2019-04-17] MEDS ORDERED: ONDANSETRON 4 MG/2 ML VIAL IVP STA (16:57)
[2019-04-17 17:17] LABS: Basophils % (A) 0 %; Eosinophils % (A) 0 %; HCT 42.2 % (34.0-46.0); HGB 13.7 gm/dL (11.4-16.0); Lymphocytes # (A) 2.2 k/uL (1.0-4.8); Lymphocytes % (A) 25 %; MCH 28.6 pg (25.0-35.0); MCHC 32.4 g/dL (31.0-37.0); MCV 88.3 fL (80.0-100.0); Mean Platelet Volume 6.9; Monocytes # (A) 0.5 k/uL (0-1.0); Monocytes % (A) 6 %; Neutrophils # (A) 5.6 k/uL (1.3-7.7); Neutrophils % (A) 66 %; Platelet Count 322 k/uL (150-450); RBC 4.78 m/uL (3.80-5.40); RDW 13.5 % (11.5-15.5); WBC 8.5 k/uL (3.8-10.6)
[2019-04-17 17:24] LABS: Albumin 4.5 g/dL (3.5-5.0); Calcium 9.6 mg/dL (8.4-10.2); Potassium 4.2 mmol/L (3.5-5.1); Total Bilirubin 0.6 mg/dL (0.2-1.3); Total Protein 7.5 g/dL (6.3-8.2)
--- NOTE | 2019-04-17 18:37 | CT ---
EXAMINATION TYPE: CT abdomen pelvis w con DATE OF EXAM: 04/17/2019 COMPARISON: 04/11/2019 INDICATION: lower back pain DLP: 1200.1 mGycm, Automated exposure control for dose reduction was used. CONTRAST: 100 mL of Isovue 300. Study performed without Oral Contrast TECHNIQUE: Axial images were obtained from above the diaphragm to the pubic rami in the axial plane a t 5 mm thick sections. Reconstructed images are reviewed on the computer in the coronal plane. FINDINGS: Limited CT sections are obtained the lung bases. The lung bases are clear. There is a small hiatal hernia present. CT ABDOMEN: Liver: There is moderate fatty infiltration liver. No discrete masses or cysts are evident. Spleen: Normal Pancreas: Mildly atrophic. Adrenal glands: The adrenal glands are normal. Gallbladder: Cholelithiasis is present. Kidneys: No masses are evident. No hydronephrosis is present. No cysts are present. Delayed images were obtained through the kidneys, which remain unremarkable. Aorta: Vascular calcification is within the aorta. Inferior vena cava: Normal. CT PELVIS: Within the superficial subcutaneous tissues there is increased density from the midline to wards the left side abdomen just above the iliac veins. Correlate with the patient's trauma history. This area appears thinner than the prior examination. Consider infectious etiology within the differe ntial. Loops of bowel within the abdomen and pelvis are normal. There are loops of bowel which are incom pletely distended or lack oral contrast limiting their evaluation. Appendix: Normal as visualized. Urinary bladder: Normal. Genitourinary structures: Uterus and ovaries are not identified. Osseous structures: Degenerative changes are in the sacroiliac joints. IMPRESSIONS: 1. Soft tissue contusion superficial soft tissues midline to left lower quadrant. Consider trauma an d infection. This may have slight comparison 2. Cholelithiasis. 3. Moderate fatty infiltration liver
[2019-04-17 19:21] VITALS: RESP 18
[2019-04-17] MEDS ORDERED: LABETALOL 5 MG/ML VIAL MDV IVP STA (19:24)
[2019-04-17 19:32] LABS: Appearance,Urine Clear (Clear); Bilirubin,Urine Negative (Negative); Blood,Urine Negative (Negative); Color,Urine Light Yellow; Glucose,Urine (UA) Negative (Negative); Ketones,Urine 1+ (Negative); Leukocyte Esterase,Urine Trace (Negative); Nitrite,Urine Negative (Negative); PH, Urine 6.5 (5.0-8.0); Protein,Urine 1+ (Negative); RBC,Urine <1 /hpf (0-5); Specific Gravity,Urine 1.035 (1.001-1.035); Squamous Epithelial Cell,Urine <1 /hpf (0-4); Urobilinogen,Urine <2.0 mg/dL (<2.0); WBC,Urine 3 /hpf (0-5)
[2019-04-17 20:27] VITALS: BP 162/64; PULSE 78; TEMP 98
== END 2019-04-17 20:41 | disposition home or self-care (01) ==
LOC: EC 16:36
DX: S30.1XXA Contusion of abdominal wall, initial encounter (principal); R11.2 Nausea with vomiting, unspecified; I11.0 Hypertensive heart disease with heart failure; R35.0 Frequency of micturition; I50.9 Heart failure, unspecified; E11.9 Type 2 diabetes mellitus without complications; K21.9 Gastro-esophageal reflux disease without esophagitis; M19.90 Unspecified osteoarthritis, unspecified site; I25.2 Old myocardial infarction; Z87.891 Personal history of nicotine dependence; Z79.4 Long term (current) use of insulin; Z79.82 Long term (current) use of aspirin; Z79.899 Other long term (current) drug therapy; X58.XXXA Exposure to other specified factors, initial encounter
CPT/HCPCS: 36415; 80053; 82150; 83605; 83690; 85025; 81001; 74177; 99285; 96374; 96375 ×2; 96376; 96361; J2405; J1170; Q9967

== ENCOUNTER → 2020-01-06 | Outpatient (CLI) | payer MEDICARE, OTHER ==
[2020-01-06 16:23] LABS: African American GFR (CKD) 64.3 (60.0-200.0); Anion Gap 11.1 mmol/L (4.00-12.00); Calcium 9.1 mg/dL (8.7-10.3); Carbon Dioxide 25.9 mmol/L (21.6-31.8); Chol/HDL Ratio 2.37; LDL Cholesterol,Calculated 44.8 mg/dL (0.0-131.0); Non-African American GFR(CKD) 55.5 (60.0-200.0); Potassium 4.8 mmol/L (3.5-5.5); VLDL Calculation 26.2 mg/dL (5.00-40.00)
== END | disposition home or self-care (01) ==
LOC: LABWHC1 10:28
PROVIDERS: ATTEND Physician Assistant
DX: E78.5 Hyperlipidemia, unspecified (principal); I65.29 Occlusion and stenosis of unspecified carotid artery; I10 Essential (primary) hypertension
CPT/HCPCS: 36415; 80048; 80061

== ENCOUNTER → 2020-01-19 | Outpatient (CLI) | payer MEDICARE, OTHER ==
--- NOTE | 2020-01-19 15:11 | CT ---
EXAMINATION TYPE: CT angio neck DATE OF EXAM: 01/19/2020 HISTORY: carotid stenosis COMPARISON: NONE CT DLP: 224.1 mGycm. Automated Exposure Control for Dose Reduction was Utilized. TECHNIQUE: CTA scan of the neck is performed with IV Contrast, patient injected with 65 mL of Isovue 370, axial images are obtained, coronal and sagittal reformatted images are reviewed. Three-D recons tructed images are created on an independent workstation and reviewed. FINDINGS: Carotid/Vascular Structures: Mild to moderate mixed peripheral plaque carotid bulb level. Normal thre e-vessel origin from aortic arch. Normal origin right common carotid artery from the right brachiocep halic artery. [id number] peripheral noncalcified plaque at its origin extending proximal segmen t without significant stenosis along the right aspect of the vessel. Moderate curvilinear noncalcifie d plaque mid segment level without significant stenosis. [id number] mixed plaque right carotid bulb extending into proximal internal carotid artery without significant stenosis. Patent external ca rotid artery without significant stenosis. Mild calcified plaque supraclinoid segment. Mild to moderate plaque and visualized portion of the left subclavian artery significant stenosis jus t before vertebral artery origin approaches but less than 50%. Left common carotid artery shows mild scattered areas of plaque without significant stenosis. More severe mixed plaque left carotid bulb ex tends into proximal internal and external carotid arteries. Lumen diameter to 3.2 mm raw data image 4 68 with reconstitution to 6.3 mm distal to this. Patent left external carotid artery. Mild calcified plaque supraclinoid segment distal internal carotid artery. Codominant vertebrobasilar system with [id number] peripheral calcified plaque distally. Vertebr al arteries patent to basilar junction. Other: Multilevel uncovertebral facet degenerative changes. Loss of normal cervical curvature. Mild t o moderate disc space narrowing C4-C5 and C5-C6 levels. Mild to moderate spurring C5-C6 and C6-C7 lev els. Moderate generalized fat replaced atrophy of the bilateral parotid glands. IMPRESSION: Most severe plaque distal left subclavian artery causes a stenosis approaching but under 50%. Most severe plaque left carotid bulb into left internal carotid artery causing stenosis approach ing but measured just under 50%
== END | disposition home or self-care (01) ==
LOC: RADCTMAIN 12:43
PROVIDERS: ATTEND Family Medicine
DX: I70.8 Atherosclerosis of other arteries (principal); I65.22 Occlusion and stenosis of left carotid artery
CPT/HCPCS: 70498; Q9967